=== PATIENT | male | born 1980 | race Caucasian/White ===

== ENCOUNTER 2018-07-04 20:55 | Emergency (ER) | payer OTHER, MEDICAID, SELFPAY ==
[2018-07-04 21:26] VITALS: BP 135/83; PULSE 98; RESP 14; TEMP 36.6; O2SAT 100
[2018-07-04 23:28] VITALS: PULSE 96; O2SAT 97
--- NOTE | 2018-07-05 02:03 | ED.OVERDOSE ---
HPI - Overdose General Chief Complaint: Toxicology Problem Stated Complaint: Intoxicated ETOH, thinks has alcohol Poisoning Time Seen by Provider: 07/05/18 02:03 Source: patient Mode of arrival: ambulatory Limitations: no limitations History of Present Illness HPI Narrative: The patient presents with abdominal discomfort and nausea. He did vomit once earlier today. He has been sober for 1 year in 2 days, until yesterday. Yesterday ( Earlier tonight) he drank 2 L of alcohol. he blamed the drinking on poor judgment. There is no inciting incident. He is here with abdominal pain, he speaks clearly. He has no associated chest pain or dyspnea. He denies history of pancreatitis or PUD. Related Data Home Medications Medication Instructions Recorded Confirmed No Known Home Medications 07/04/18 07/04/18 Allergies Allergy/AdvReac Type Severity Reaction Status Date / Time No Known Drug Allergies Allergy Verified 07/04/18 21:29 Review of Systems Review of Systems ROS Unobtainable: All systems reviewed & are unremarkable except as noted in HPI and below Constitutional Denies chills, Denies fever(s), Denies lethargy and Denies weakness Eyes Denies change in vision ENT Ears, Nose, Mouth, and Throat: Denies vertigo Cardiovascular Denies chest pain, Denies lightheadedness, Denies palpitations, Denies dyspnea and Denies orthopnea Respiratory Denies cough, Denies dyspnea and Denies wheezing Gastrointestinal Gastrointestinal: Denies abdominal pain, Denies change in bowel habits, Reports nausea and Denies vomiting Musculoskeletal Denies back pain, Denies muscle weakness, Denies numbness and Denies tingling Integumentary/Breasts Denies rash Neurologic Denies confusion, Denies vertigo, Denies numbness, Denies tingling and Denies weakness Psychiatric Denies confusion Endocrine Denies palpitations Allergic/Immunologic Denies wheezing PFSH Medical History Alcoholism (Acute) Surgical History No history of previous surgery (Acute) Social History Smoking Status: Former smoker alcohol intake: current Social History Smoking Status: Former smoker alcohol intake: current Exam Initial Vital Signs Initial Vital Signs: Vital Signs Temperature 98 F 07/04/18 21:26 Pulse Rate 98 H 07/04/18 21:26 Respiratory Rate 14 07/04/18 21:26 Blood Pressure 135/83 07/04/18 21:26 Pulse Oximetry 100 07/04/18 21:26 Const General: cooperative and well developed Nutritional Appearance: well nourished Orientation: alert, awake, oriented x3 and not confused [facility] Head: normocephalic and atraumatic Nose: external nose normal Face and sinus: sinuses nontender and face symmetric Mouth: oral mucosae normal and moist mucous membranes Throat: posterior oropharynx normal, tonsils normal and uvula midline Eyes General: appearance normal, both eyes and all related structures Eyelids: eyelids normal Conjunctivae: conjunctivae normal Sclera: sclerae normal ( no icterus) Pupils: PERRL EOM: EOM intact bilaterally Chest Chest: normal inspection of the chest Resp Effort & Inspection: normal respiratory effort, able to speak in complete sentences, no respiratory distress and no use of accessory muscles Auscultation: clear to auscultation bilaterally, no rales, no rhonchi and no wheezes Cardio Rate: regular rate Rhythm: regular rhythm Heart Sounds: no click, no gallops, no murmurs and no rubs Pulses: normal peripheral pulses GI Inspection: non-distended Palpation: soft, no hepatosplenomegaly, No guarding, No pulsatile mass and tender ( epigastric) Auscultation: normal bowel sounds Back/Spine/Pelvis Back: No CVA tenderness Skin General: no rashes or lesions noted Neuro General: alert, oriented x3, gait normal and no focal motor deficits Speech: speech normal Extrem General: full ROM, no pedal edema and no calf tenderness Psych Appearance: well kempt Mental Status: mental status grossly normal Attitude: cooperative Thought Content: normal and suicidality Judgment: judgment good Course Course Narrative: His pain has resolved as the medications listed were given. He has no pain, no nausea. He feels back to normal. Orders Ordered: ED Orders 07/05/18 02:35 Complete Blood Count AUTO DIFF Stat Comprehensive Metabolic Panel Stat Lipase Stat 07/05/18 04:24 Urine Drug Screen, Rapid Stat Discontinued Medications Ketorolac Tromethamine (Toradol) 30 mg IV NOW ONE Stop: 07/05/18 02:12 Last Admin: 07/05/18 02:38 Dose: 30 mg Ondansetron HCl (Zofran) 4 mg IV NOW ONE Stop: 07/05/18 02:12 Last Admin: 07/05/18 02:38 Dose: 4 mg Pantoprazole Sodium (Protonix) 40 mg IV NOW ONE Stop: 07/05/18 02:12 Last Admin: 07/05/18 03:04 Dose: 40 mg Vital Signs - 8 hr 07/04/18 21:26 07/04/18 23:28 07/05/18 03:10 Temperature 98 F Pulse Rate 98 H 96 H 80 Respiratory Rate 14 20 Blood Pressure 135/83 Blood Pressure [Left Arm] 128/89 Pulse Oximetry 100 97 97 07/05/18 04:26 Temperature Pulse Rate 93 H Respiratory Rate 18 Blood Pressure Blood Pressure [Left Arm] 111/63 Pulse Oximetry 95 MDM - Overdose Lab Data Result diagrams: 07/05/18 02:35 07/05/18 02:35 Lab Results 07/05/18 07/05/18 Range/Units 02:35 02:35 WBC 9.2 (4.5-11.0) X10^3/uL RBC 4.61 (4.5-5.9) X10^6/uL Hgb 13.9 (13.5-17.5) g/dL Hct 41.5 (41-53) % MCV 90.0 (80-100) fL MCH 30.1 (26-34) PG MCHC 33.4 (30-36) % RDW 14.2 (11.6-14.8) % Plt Count 295 (150-400) X10^3/uL Neut % (Auto) 55.8 (50-75) % Lymph % (Auto) 39.6 (25-40) % [place] % (Auto) 3.5 (3-14) % Eos % (Auto) 0.4 L (2-4) % Baso % (Auto) 0.7 (0-2) % Neut # (Auto) 5200 (9654-4777) /uL Lymph # (Auto) 3700 (2070-7766) /uL [place] # (Auto) 300 (0-900) /uL Eos # (Auto) 0 (0-450) /uL Baso # (Auto) 100 (0-100) /uL Sodium 144 (137-145) mmol/L Potassium 4.1 (3.4-5.1) mmol/L Chloride 102 (98-107) mmol/L Carbon Dioxide 29 (22-32) mmol/L BUN 13 (9-20) mg/dL Creatinine 0.90 (0.66-1.25) mg/dL Estimated GFR > 60.0 (>60) mL/min BUN/Creatinine Ratio 14.4 (6-22) Glucose 81 (70-100) mg/dL Calcium 8.6 (8.4-10.2) mg/dL Total Bilirubin 0.4 (0.2-1.3) mg/dL AST 44 (17-59) IU/L ALT 31 (21-72) IU/L Alkaline Phosphatase 32 L (38-126) U/L Total Protein 8.2 (6.3-8.2) g/dL Albumin 5.0 (3.5-5.0) g/dL Globulin 3.2 (1.7-4.1) g/dL Albumin/Globulin Ratio 1.6 (1.0-2.8) Lipase 69 (23-300) U/L Urine Dip Bedside Urine Glucose Negative Bedside Urine Bilirubin - Negative Bedside Urine Ketone - Negative Urine Specific [place] 1.020 Bedside Urine Occult Blood - Negative Bedside Urine pH 6.0 Bedside Urine Protein - Negative Bedside Urine Urobilinogen - Negative Bedside Urine Nitrite - Negative Bedside Urine Leukocytes - Negative Esterase MDM Narrative Medical decision making narrative: I think his discomfort was related to his excessive alcohol intake. He agrees. We discussed avoiding alcohol, he agrees again. He feels improved and ready for discharge. Discharge Plan Departure Patient Disposition: Home Clinical Impression: Alcoholic gastritis Qualifiers: Chronicity: acute Gastritis bleeding: without bleeding Qualified Code(s): K29.20 - Alcoholic gastritis without bleeding Instructions: DI for Alcoholic Gastritis Activity Restrictions/Additional Instructions: If you avoid the use of alcohol, I do not think he will have ongoing problems with her stomach. Zantac is available over the counter. If you have recurrence of this discomfort, take 2 pills 2 times daily. Follow up with your doctor or return here if symptoms increase. Prescriptions: No Action No Known Home Medications RF: 0
[2018-07-05] MEDS: ONDANSETRON 4 MG/2 ML INJ IV (02:38)
[2018-07-05] MEDS: KETOROLAC 60 MG/2 ML VIAL 30 MG IV (02:38)
[2018-07-05 02:54] LABS: Add Manual Diff / Slide Review NO; Basophils Absolute Auto 100 /uL (0-100); Basophils Percent Auto 0.7 % (0-2); Eosinophils Absolute Auto 0 /uL (0-450); Eosinophils Percent Auto 0.4 % (2-4); Hematocrit 41.5 % (41-53); Hemoglobin 13.9 g/dL (13.5-17.5); Lymphocytes Absolute Auto 3700 /uL (1100-4500); Lymphocytes Percent Auto 39.6 % (25-40); Mean Corpuscular HGB Conc 33.4 % (30-36); Mean Corpuscular Hemoglobin 30.1 PG (26-34); Monocytes Absolute Auto 300 /uL (0-900); Monocytes Percent Auto 3.5 % (3-14); Neutrophils Absolute Auto 5200 /uL (1500-7000); Neutrophils Percent Auto 55.8 % (50-75); Platelet Count 295 X10^3/uL (150-400); Red Blood Cell Count 4.61 X10^6/uL (4.5-5.9); Red Cell Distribution Width 14.2 % (11.6-14.8); White Blood Cell Count 9.2 X10^3/uL (4.5-11.0)
[2018-07-05 03:00] LABS: Alanine Aminotransferase 31 IU/L (21-72); Albumin Globulin Ratio 1.6 (1.0-2.8); Alkaline Phosphatase 32 U/L (38-126); Aspartate Aminotransferase 44 IU/L (17-59); BUN Creatinine Ratio 14.4 (6-22); Bilirubin Total 0.4 mg/dL (0.2-1.3); Blood Urea Nitrogen 13 mg/dL (9-20); Calcium 8.6 mg/dL (8.4-10.2); Carbon Dioxide 29 mmol/L (22-32); Chloride 102 mmol/L (98-107); Estimated Glomerular Filt Rate > 60.0 mL/min (>60); Globulin 3.2 g/dL (1.7-4.1); Glucose 81 mg/dL (70-100); HEMOLYSIS < 15 (0-50); Lipase 69 U/L (23-300); Potassium 4.1 mmol/L (3.4-5.1); Sodium 144 mmol/L (137-145); Total Protein 8.2 g/dL (6.3-8.2)
[2018-07-05] MEDS: PANTOPRAZOLE 40 MG VIAL IV (03:04)
[2018-07-05 03:10] VITALS: BP 128/89; PULSE 80; RESP 20; O2SAT 97
--- NOTE | 2018-07-05 04:20 | PC.NURSE ---
Pt reports his headache improved to 2/10 and nausea resolved. His abdomen feels well now. pt denies feeling restless or anxious at this time. Pt's partner at bedside.
[2018-07-05 04:26] VITALS: BP 111/63; PULSE 93; RESP 18; O2SAT 95
[2018-07-05 05:29] VITALS: BP 112/66; PULSE 97; RESP 14; TEMP 37.1; O2SAT 96
== END 2018-07-05 05:40 | disposition home or self-care (01) ==
PROVIDERS: Emergency Provider Emergency Medicine
DX: K29.20 Alcoholic gastritis without bleeding (principal)
CPT/HCPCS: 36591; 80053; 81003; 83690; 85025; 96374; 96375; 99283; 99284; C9113; J1885; J2405

== ENCOUNTER 2018-11-16 07:59 | Emergency (ER) | payer OTHER, SELFPAY ==
[2018-11-16 08:19] VITALS: BP 136/98; PULSE 108; RESP 22; TEMP 36.5; O2SAT 97; BMI 21.2
--- NOTE | 2018-11-16 09:22 | PC.NURSE ---
Addendum entered by Cira Thompson R.N. 11/16/18 09:37: Pt attempting to leave AMA. This RN redirected patient to the restroom to provide urine sample and stated that he had a bed available at [facility] for detox. Pt directionable and went to bathroom and provided urine sample. Pt came out of room multiple times asking where lab was and that he was going to walk his urine sample down himself. Pt redirected to his room. Pt came out again and asked for a vacutainer to draw his own blood. Pt told to go back to room. Pt then walked out of the unit, stated that he was leaving, that we weren't doing anything for him. Pt AOx4, ambulatory and signed his AMA form. Original Note: Pt attempting to leave AMA. This RN redirected patient to the restroom to provide urine sample and stated that he had a bed available at [facility] for detox. Pt directionable and went to bathroom and provided urine sample. Pt came out of room multiple times asking where lab was and that he was going to walk his urine sample down
--- NOTE | 2018-11-16 09:23 | PC.NURSE ---
Pt states he wants to leave. Ambulatory. Clear speech. Provider states safe to leave. Signed AMA. Walked w/ pt to open door, he then stepped forward and became threatening. I asked him to step back and he took a step forward. I then stated he was signed out of the ED, to walk out of hospital. He declined. I stepped back and told him I felt threatened and asked him to leave. He again stepped forward. I asked library serials assistant to call for assist, he then exited the building calmly and casually.
--- NOTE | 2018-11-16 09:26 | ED_ITS ---
HPI - Alcohol General Chief Complaint: Toxicology Problem Stated Complaint: acute alcohol detox Time Seen by Provider: 11/16/18 08:02 Source: patient Mode of arrival: ambulatory Limitations: no limitations History of Present Illness HPI narrative: Patient comes to the emergency department complaining needing help with his drinking. Patient states that he has a job that is very stressful and also has some stressors in his relationship with his significant other, and that everything has been too much recently. Patient has a longstanding history of alcoholism, and states he has been struggling with this since age 15. Patient reports having been to rehab for this a number of times over the years. He states that he tends to binge drink, and that his most recent binge has been for about a week and half. He states that recently, he received a job promotion, which did increase his income, but has also increased his responsibilities at work. 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 Patient states he has been drinking 1 to 2/5 of vodka per day. He states he would like help with his drinking, though he prefers outpatient so that he can continue his work duties. The patient is open to inpatient if it is only for a couple of days. He denies abdominal pain. He states he sometimes feels as though he looks ?jaundiced?. He denies any known history of liver issues. No nausea or vomiting. He does note that he feels as though his food does not digest very well, but he has had an appetite and was able to eat a large meal yesterday. The patient has been doing some purging in the form of induced vomiting after eating, because he states that he does not feel that his food is digesting completely or completely evacuating from his stomach. No chest pain or shortness of breath. No fevers. No blood in stool or vomit. The patient is otherwise healthy. He denies suicidal or homicidal ideation. No other complaints at this time. Related Data Home Medications Medication Instructions Recorded Confirmed No Known Home Medications 07/04/18 07/04/18 Allergies Allergy/AdvReac Type Severity Reaction Status Date / Time No Known Drug Allergies Allergy Verified 11/16/18 08:22 Review of Systems Constitutional Denies chills, Denies fever(s), Denies lethargy and Denies weakness Eyes Denies change in vision, Denies eye discharge, Denies irritation and Denies loss of vision ENT Ears, Nose, Mouth, and Throat: Denies change in voice, Denies neck pain and Denies sore throat Cardiovascular Denies chest pain, Denies irregular heart rhythm, Denies lightheadedness, Denies palpitations, Denies dyspnea, Denies dyspnea on exertion and Denies orthopnea Respiratory Denies cough, Denies dyspnea, Denies dyspnea on exertion and Denies wheezing Gastrointestinal Gastrointestinal: Denies abdominal pain, Denies change in bowel habits, Denies diarrhea, Denies nausea and Denies vomiting Genitourinary Denies hematuria, Denies flank pain, Denies urinary incontinence and Denies urinary urgency Musculoskeletal Denies neck pain Integumentary/Breasts Denies pruritus, Denies erythema, Denies rash and Denies wounds Neurologic Denies confusion, Denies loss of vision and Denies weakness Psychiatric Denies anxiety, Denies confusion, Denies depression, Denies homicidal ideation and Denies suicidal ideation Endocrine Denies palpitations Hematologic/Lymphatic Denies easy bruising Allergic/Immunologic Denies wheezing [facility] Medical History Alcoholism (Acute) Surgical History No history of previous surgery (Acute) Social History (Updated 07/05/18 @ 02:21 by Humble Coon MD) Smoking Status: Former smoker alcohol intake: current Social History Smoking Status: Former smoker alcohol intake: current Exam Initial Vital Signs Initial Vital Signs: Vital Signs Temperature 97.7 F 11/16/18 08:19 Pulse Rate 108 H 11/16/18 08:19 Respiratory Rate 22 11/16/18 08:19 Blood Pressure 136/98 H 11/16/18 08:19 Pulse Oximetry 97 11/16/18 08:19 Const General: cooperative and well developed Nutritional Appearance: well nourished Orientation: alert, awake, oriented x3 and not confused Other: Patient is tearful, and smells of alcohol, but otherwise well-appearing. HENMT Head: normocephalic and atraumatic Ears: external ears normal and TM's normal bilaterally Nose: external nose normal and No nasal discharge Face and sinus: sinuses nontender, face symmetric, no sinus tenderness and No dry mucous membranes Mouth: oral mucosae normal and moist mucous membranes Teeth and gingiva: dentition normal Throat: tonsils normal and uvula midline Eyes General: appearance normal, both eyes and all related structures Eyelids: eyelids normal Conjunctivae: conjunctivae normal Sclera: sclerae normal Pupils: PERRL EOM: EOM intact bilaterally Neck Neck: normal visual inspection, trachea midline, No lymphadenopathy, No midline deformity and No JVD Lymphatic: No lymphedema Chest Chest: normal inspection of the chest Resp Effort & Inspection: normal respiratory effort, able to speak in complete sentences, no respiratory distress and no use of accessory muscles Auscultation: clear to auscultation bilaterally, no rales, no rhonchi and no wheezes Cardio Rate: regular rate Rhythm: regular rhythm Heart Sounds: no click, no gallops, no murmurs and no rubs Pulses: normal peripheral pulses GI Inspection: non-distended Palpation: soft, no hepatosplenomegaly, No guarding, No pulsatile mass and No tender Auscultation: normal bowel sounds Back/Spine/Pelvis Back: No CVA tenderness Cervical Spine: cervical ROM normal and No pain with cervical ROM Thoracic/Lumbar Spine: thoracic and lumbar spine normal to inspection Skin General: no rashes or lesions noted, No jaundice and No petechiae Neuro General: alert, oriented x3, gait normal and no focal motor deficits Speech: speech normal Extrem General: full ROM, no clubbing, cyanosis or edema, no pedal edema and no calf tenderness Psych Appearance: well kempt Mental Status: mental status grossly normal Attitude: cooperative Thought Content: normal and suicidality Judgment: judgment good Course Course Narrative: I discussed with the patient that we would call the crisis Center and see if they had any beds available. I explained to him that we would also start an IV, given a banana bag, and check his labs for detox clearance. We did call the crisis Center, who stated they had available beds, but would need to see the patient's labs 1st. Shortly after this, the patient became agitated and stated he was tired of waiting in the emergency department and insisted on leaving. The patient was alert and oriented x3 and ambulatory on a narrow based gait without unsteadiness. He stated he would walk home. The patient had not been in the emergency department long enough to be evaluated by a mental health professional, and as such, think consideration of his alertness and orientation, he was deemed competent to sign out against medical advice, which he did. However, about 10 minutes later, the patient did return to the emergency department stating that he had changed his mind and would like to continue with the plan to go to detox. The patient stayed in the emergency department only about 10 minutes before again deciding to leave. As with the 1st time, patient was advised that he is not fit to drive, and he stated he was walking home. He was given a list of resources for outpatient treatment. Orders Ordered: ED Orders 11/16/18 09:15 Urine Drug Screen, Rapid Stat 11/16/18 09:51 Complete Blood Count AUTO DIFF Stat Comprehensive Metabolic Panel Stat Ethanol (ETOH) Stat Discontinued Medications Magnesium Sulfate 2 gm/ Folic Acid 1 mg/ Thiamine HCl 100 mg / Multivitamins 10 ml/ Sodium Chloride 1,015.2 mls @ 1,000 mls/hr IV NOW ONE Stop: 11/16/18 09:58 Vital Signs - 8 hr 11/16/18 08:19 Temperature 97.7 F Pulse Rate 108 H Respiratory Rate 22 Blood Pressure 136/98 H Pulse Oximetry 97 MDM - Alcohol Medical Records Attestation: I reviewed the patient's medical records. Lab Data Attestation: I reviewed the patient's lab results. Result diagrams: 11/16/18 09:51 11/16/18 09:51 Labs: Lab Results 11/16/18 11/16/18 11/16/18 Range/Units 09:15 09:51 09:51 WBC 5.6 (4.5-11.0) X10^3/uL RBC 5.15 (4.5-5.9) X10^6/uL Hgb 15.8 (13.5-17.5) g/dL Hct 46.3 (41-53) % MCV 89.9 (80-100) fL MCH 30.7 (26-34) PG MCHC 34.2 (30-36) % RDW 13.8 (11.6-14.8) % Plt Count 297 (150-400) X10^3/uL Neut % (Auto) 51.4 (50-75) % Lymph % (Auto) 41.6 H (25-40) % [place] % (Auto) 6.1 (3-14) % Eos % (Auto) 0.3 L (2-4) % Baso % (Auto) 0.6 (0-2) % Neut # (Auto) 2900 (8275-3613) /uL Lymph # (Auto) 2300 (9222-5886) /uL [place] # (Auto) 300 (0-900) /uL Eos # (Auto) 0 (0-450) /uL Baso # (Auto) 0 (0-100) /uL Sodium 148 H (137-145) mmol/L Potassium 3.5 (3.4-5.1) mmol/L Chloride 98 (98-107) mmol/L Carbon Dioxide 35 H (22-32) mmol/L BUN 10 (9-20) mg/dL Creatinine 0.80 (0.66-1.25) mg/dL Estimated GFR > 60.0 (>60) mL/min BUN/Creatinine Ratio 12.5 (6-22) Glucose 111 H (70-100) mg/dL Calcium 9.1 (8.4-10.2) mg/dL Total Bilirubin 0.6 (0.2-1.3) mg/dL AST 51 (17-59) IU/L ALT 25 (21-72) IU/L Alkaline Phosphatase 39 (38-126) U/L Total Protein 9.0 H (6.3-8.2) g/dL Albumin 5.3 H (3.5-5.0) g/dL Globulin 3.7 (1.7-4.1) g/dL Albumin/Globulin Ratio 1.4 (1.0-2.8) Urine Opiates Screen Negative (Negative) Ur Oxycodone Screen Negative (Negative) Urine Methadone Screen Negative (Negative) Ur Barbiturates Screen Negative (Negative) U Tricyclic Antidepress Negative (Negative) Ur Phencyclidine Scrn Negative (Negative) Ur Amphetamines Screen Negative (Negative) U Methamphetamines Scrn Negative (Negative) Ur MDMA Scrn (Ecstasy) Negative (Negative) U Benzodiazepines Scrn Negative (Negative) Urine Cocaine Screen Negative (Negative) U Marijuana (THC) Screen Negative (Negative) Ethyl Alcohol 384 mg/dL Discharge Plan Departure Patient Disposition: Left Against Medical Advice Clinical Impression: Alcohol intoxication Discharge Date/Time: 11/16/18 10:00 Prescriptions: No Action No Known Home Medications RF: 0 Stand Alone Forms: Against Medical Advice
--- NOTE | 2018-11-16 09:42 | PC.NURSE ---
Pt sat in lobby of ED. Returned and asked to speak w/ me. Apologetic. States he needs help. No threatening demeanor. Returned to ED room 7.
[2018-11-16 09:51] LABS: Urine Amphetamines Negative (Negative); Urine Barbiturates Negative (Negative); Urine Benzodiazepines Negative (Negative); Urine Cocaine Negative (Negative); Urine MDMA Negative (Negative); Urine Methadone Negative (Negative); Urine Methamphetamines Negative (Negative); Urine Morphine/Opi cutoff 2000 Negative (Negative); Urine Phencyclidine Negative (Negative); Urine Tetrahydrocannabinol Negative (Negative); Urine Tricyclic Antidepressant Negative (Negative)
[2018-11-16 09:52] LABS: Urine Oxycodone Negative (Negative)
[2018-11-16 09:59] LABS: Add Manual Diff / Slide Review NO; Basophils Absolute Auto 0 /uL (0-100); Basophils Percent Auto 0.6 % (0-2); Eosinophils Absolute Auto 0 /uL (0-450); Eosinophils Percent Auto 0.3 % (2-4); Hematocrit 46.3 % (41-53); Hemoglobin 15.8 g/dL (13.5-17.5); Lymphocytes Absolute Auto 2300 /uL (1100-4500); Lymphocytes Percent Auto 41.6 % (25-40); Mean Corpuscular HGB Conc 34.2 % (30-36); Mean Corpuscular Hemoglobin 30.7 PG (26-34); Mean Corpuscular Volume 89.9 fL (80-100); Monocytes Absolute Auto 300 /uL (0-900); Monocytes Percent Auto 6.1 % (3-14); Neutrophils Absolute Auto 2900 /uL (1500-7000); Neutrophils Percent Auto 51.4 % (50-75); Platelet Count 297 X10^3/uL (150-400); Red Blood Cell Count 5.15 X10^6/uL (4.5-5.9); Red Cell Distribution Width 13.8 % (11.6-14.8); White Blood Cell Count 5.6 X10^3/uL (4.5-11.0)
--- NOTE | 2018-11-16 10:00 | PC.NURSE ---
Pt took out own IV and left department.
[2018-11-16 10:11] LABS: Alanine Aminotransferase 25 IU/L (21-72); Albumin 5.3 g/dL (3.5-5.0); Albumin Globulin Ratio 1.4 (1.0-2.8); Alkaline Phosphatase 39 U/L (38-126); Aspartate Aminotransferase 51 IU/L (17-59); BUN Creatinine Ratio 12.5 (6-22); Bilirubin Total 0.6 mg/dL (0.2-1.3); Blood Urea Nitrogen 10 mg/dL (9-20); Calcium 9.1 mg/dL (8.4-10.2); Carbon Dioxide 35 mmol/L (22-32); Chloride 98 mmol/L (98-107); Estimated Glomerular Filt Rate > 60.0 mL/min (>60); Globulin 3.7 g/dL (1.7-4.1); Glucose 111 mg/dL (70-100); HEMOLYSIS < 15 (0-50); Potassium 3.5 mmol/L (3.4-5.1); Sodium 148 mmol/L (137-145)
[2018-11-16 10:18] LABS: Ethanol (ETOH) 384 mg/dL
== END 2018-11-16 10:00 | disposition left against medical advice (07) ==
PROVIDERS: Emergency Provider Emergency Medicine
DX: F10.929 Alcohol use, unspecified with intoxication, unspecified (principal); Z53.20 Procedure and treatment not carried out because of patient's decision for unspecified reasons
CPT/HCPCS: 36591; 80053; 80305; 80320; 85025; 99281; 99283

== ENCOUNTER 2018-11-16 11:11 | Emergency (ER) | payer OTHER, SELFPAY ==
[2018-11-16 11:16] VITALS: BP 136/97; PULSE 91; RESP 17; TEMP 36.9; O2SAT 96
[2018-11-16 11:30] VITALS: BP 123/86; PULSE 90; O2SAT 98
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
--- NOTE | 2018-11-16 11:41 | PC.NURSE ---
Late entry: Pt's father called ED @ 10 min after he had left. Voiced concern that his son was allowed to leave. Unable to discus record w/o pt's permission. Verbalized to father that his son was welcome to be seen at any point in time. If he had high concern level to call [facility] SCHRADER for assistance.
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
[2018-11-16 12:00] VITALS: BP 114/79; PULSE 80; O2SAT 97
[2018-11-16 12:30] VITALS: BP 107/77; PULSE 70; O2SAT 95
[2018-11-16 13:00] VITALS: BP 112/79; PULSE 88; O2SAT 96
[2018-11-16 13:32] VITALS: BP 112/76; PULSE 80; RESP 17; O2SAT 99
== END 2018-11-16 13:56 | disposition home or self-care (01) ==
PROVIDERS: Emergency Provider Emergency Medicine
DX: S00.01XA Abrasion of scalp, initial encounter (principal); F10.929 Alcohol use, unspecified with intoxication, unspecified; V49.9XXA Car occupant (driver) (passenger) injured in unspecified traffic accident, initial encounter
CPT/HCPCS: 70450; 72125; 99283; 99284

== ENCOUNTER 2019-07-27 15:32 | Emergency (ER) | payer OTHER, SELFPAY ==
[2019-07-27 15:44] VITALS: BP 162/113; PULSE 99; RESP 12; TEMP 37; O2SAT 99; BMI 22.8
--- NOTE | 2019-07-27 16:06 | ED_ITS ---
HPI - Alcohol <Chris CollazoBRYON espinoza - Last Filed: 07/28/19 00:19> General Chief Complaint: Toxicology Problem Stated Complaint: DEHYDRATION THREAT TO SELF AND OTHERS NEEDS HELP Time Seen by Provider: 07/27/19 15:43 Source: patient and family Mode of arrival: Wheelchair Limitations: altered mental status and physical limitation History of Present Illness HPI narrative: This is a 38-year-old male, current vapor, who presents to ED with father with chief complain of concerns for dehydration from large amount of alcohol intake. Patient reports he has been nauseated and had about 5 episodes of emesis last 24 hours. Patient is a for the 1st time had specks of blood when he vomited this morning. Patient denies abdominal pain. According to patient and father he has been drinking last 20-25 years and usually takes about 16 beers a day. Patient has history of DT 2004. Patient and father states he has been reducing his alcohol intake over last 2 days for half of his normal amount and last alcohol intake was 06/20/2029 this afternoon. Patient had taken Ativan before coming into ED at 2:00 p.m. and taken [place] version of antiemetic medication this morning. Patient denies hallucinations, but reports nausea and headache with mild anxiety. Related Data Home Medications Medication Instructions Recorded Confirmed No Known Home Medications 07/27/19 07/27/19 Allergies Allergy/AdvReac Type Severity Reaction Status Date / Time No Known Drug Allergies Allergy Verified 07/27/19 15:55 Review of Systems <Chris CollazoBRYON espinoza - Last Filed: 07/28/19 00:19> Review of Systems Narrative: General: Denies fever, chills, fatigue, malaise, sweats. HEENT: Denies sinus pain, ear pain, sore throat, difficulty swallowing, dizziness. Respiratory: Denies dyspnea, cough, wheezing, hemoptysis, sputum. Cardiovascular: Denies chest pain, palpitations, orthopnea, edema. Gastrointestinal: Denies (+) nausea, vomiting, abdominal pain, diarrhea, constipation, melena, specs of blood in emesis this morning. : Denies dysuria, frequency, incontinence, hematuria, urinary retention. Musculoskeletal: Denies weakness, joint pain or bony pain. Skin: Denies rash, skin lesions, or other. Neurologic: Denies weakness, headache, numbness, change in speech, confusion, seizures, incoordination. Psychiatric: Denies suicidal or homicidal ideation. Alcohol smell on his breath. Tearful easily. 12-point review of systems is negative except for those stated above. Patient History <BRYON Melendez - Last Filed: 07/28/19 00:19> Medical History Alcoholism (Acute) Palpitation (Acute) Surgical History No history of previous surgery (Acute) Social History Smoking Status: Former smoker alcohol intake: current Smoking Status: Former smoker tobacco type: vaping alcohol intake frequency: 3 or more drinks per day Substance Use Type: does not use Exam <BRYON Melendez - Last Filed: 07/28/19 00:19> Narrative Exam Narrative: GEN: Alert, oriented x 3, appears to be intoxicated from alcohol. Slightly slurred speech with alcohol breath. Head: Normal cephalic, atraumatic. No scalp or temporal tenderness, palpable mass or rash. EYES: Pupils are equal, round, and reactive to light and accommodation, 5mm bilatearally. Extraocular muscles are intact bilaterally. There is no subconjunctival hemorrhage, exudate and sclera non-icteric. ENT: Bilateral auditory canals and tympanic membranes clear. Hearing grossly intact. Nose without bleeding, purulent discharge or deviation. Facial sinuses nontender to palpate. Mucous membrane moist, no mucosal lesion. Throat without erythema, tonsillar hypertrophy or exudate. Uvula in midline, airway patent. Neck: Trachea in midline. No JVD, non-tender without lymphadenopathy. No masses or thyroid megaly. Supple, non-tender and no meningeal signs. CARDIAC: Normal regular tachy rate and rhythm without murmurs, gallops, or rubs. No chest wall tenderness. No peripheral edema, cyanosis or pallor. Capillary refill is less than 2 seconds. RESPIRATORY: Lungs are clear to auscultate bilaterally. No cough, wheezes, rales, or rhonchi. No stridor, respiratory distress, increase work of breathing, or accessary muscle used. ABD: Abdomen soft, nontender and non-distended. No guarding or rebound tenderness to palpate. Bowel sounds are normal in all 4 quadrants. There is no palpable masses or organomegaly. EXT: Full painless ROM of all extremities with no loss of sensation, strength, effusion or edema. SKIN: Warm, dry, normal color for patient. No erythema, lesions or rash over visible areas. BACK: Nontender without deformity or crepitance. No flank tenderness. NEUROLOGICAL: Alert and oriented to place, time and person. Sensation and motor function intact bilaterally. No facial droops, dysphasia. Initial Vital Signs Initial Vital Signs: Vital Signs Temperature 98.6 F 07/27/19 15:44 Pulse Rate 99 H 07/27/19 15:44 Respiratory Rate 12 07/27/19 15:44 Blood Pressure 162/113 H 07/27/19 15:44 Pulse Oximetry 99 07/27/19 15:44 Psych Appearance: grossly normal Speech and Movement: slowed movement, slurred speech and other Mood: dysthymic mood Affect: sad Attitude: cooperative Thought Process: circumstantial Thought Content: no hallucinations, no homicidality and suicidality Judgment: limited <Sherine Blanchard MD - Last Filed: 07/28/19 08:22> Initial Vital Signs Initial Vital Signs: Vital Signs Temperature 98.6 F 07/27/19 15:44 Pulse Rate 99 H 07/27/19 15:44 Respiratory Rate 12 07/27/19 15:44 Blood Pressure 162/113 H 07/27/19 15:44 Pulse Oximetry 99 07/27/19 15:44 Scores <BRYON Melendez - Last Filed: 07/28/19 00:19> ABCD2 Citation: 1600-CIWA socre 7 (Intermittent nausea 4/Mild anxious 1/Mild MALIN 2) Course <BRYON Melendez - Last Filed: 07/28/19 00:19> Orders Ordered: Discontinued Medications Acetaminophen (Tylenol) 650 mg PO NOW ONE Stop: 07/27/19 17:02 Last Admin: 07/27/19 17:27 Dose: 650 mg Documented by: CVANCE Magnesium Sulfate 2 gm/ Folic Acid 1 mg/ Thiamine HCl 100 mg / Multivitamins 10 ml/ Sodium Chloride 1,015.2 mls @ 500 mls/hr IV NOW ONE Stop: 07/27/19 18:05 Last Admin: 07/27/19 16:40 Dose: 500 mls/hr Documented by: SHAJI Ondansetron HCl (Zofran) 4 mg IV NOW ONE Stop: 07/27/19 17:02 Last Admin: 07/27/19 17:27 Dose: 4 mg Documented by: SHAJI Reevaluation(s) Reevaluation #1: The patient requesting Ativan, I need an Ativan and the patient was informed lab test is pending currently and his CIWA score does not indicate he is going through withdrawal at this time. Explaining to patient that his last drink was at 2:30 a.m. before coming into ED and he had Ativan medication as well. Medication will be administered as needed. Patient offered Zofran for nausea and Tylenol for headache. Time: 17:10 Vital Signs Vital signs: Vital Signs - 8 hr 07/27/19 16:45 07/27/19 17:46 Pulse Rate 100 H 92 H Respiratory Rate 12 14 Blood Pressure [Left Arm] 141/95 H Pulse Oximetry 97 96 <Sherine Blanchard MD - Last Filed: 07/28/19 08:22> Orders Ordered: Discontinued Medications Acetaminophen (Tylenol) 650 mg PO NOW ONE Stop: 07/27/19 17:02 Last Admin: 07/27/19 17:27 Dose: 650 mg Documented by: SHAJI Magnesium Sulfate 2 gm/ Folic Acid 1 mg/ Thiamine HCl 100 mg / Multivitamins 10 ml/ Sodium Chloride 1,015.2 mls @ 500 mls/hr IV NOW ONE Stop: 07/27/19 18:05 Last Admin: 07/27/19 16:40 Dose: 500 mls/hr Documented by: SHAJI Ondansetron HCl (Zofran) 4 mg IV NOW ONE Stop: 07/27/19 17:02 Last Admin: 07/27/19 17:27 Dose: 4 mg Documented by: SHAJI Vital Signs Vital signs: Vital Signs - 8 hr 07/27/19 16:45 07/27/19 17:46 Pulse Rate 100 H 92 H Respiratory Rate 12 14 Blood Pressure [Left Arm] 141/95 H Pulse Oximetry 97 96 MDM - Alcohol <BRYON Melendez - Last Filed: 07/28/19 00:19> Differential Diagnosis Differential diagnosis: Likely alcohol intoxication and alcohol withdrawal syndrome Medical Records Attestation: I reviewed the patient's medical records. Lab Data Attestation: I reviewed the patient's lab results. Result diagrams: 07/27/19 16:25 07/27/19 16:25 Labs: Lab Results 07/27/19 07/27/19 07/27/19 Range/Units 16:25 16:25 16:25 WBC 7.2 (4.5-11.0) X10^3/uL RBC 5.02 (4.5-5.9) X10^6/uL Hgb 15.2 (13.5-17.5) g/dL Hct 44.6 (41-53) % MCV 88.9 (80-100) fL MCH 30.4 (26-34) PG MCHC 34.2 (30-36) % RDW 13.9 (11.6-14.8) % Plt Count 263 (150-400) X10^3/uL Neut % (Auto) 40.2 L (50-75) % Lymph % (Auto) 55.2 H (25-40) % [place] % (Auto) 3.9 (3-14) % Eos % (Auto) 0.1 L (2-4) % Baso % (Auto) 0.6 (0-2) % Neut # (Auto) 2900 (7158-0058) /uL Lymph # (Auto) 4000 (4264-5514) /uL [place] # (Auto) 300 (0-900) /uL Eos # (Auto) 0 (0-450) /uL Baso # (Auto) 0 (0-100) /uL PT 10.4 (10.1-12.7) SECONDS INR 0.9 (0.9-1.3) Sodium (137-145) mmol/L Potassium (3.4-5.1) mmol/L Chloride (98-107) mmol/L Carbon Dioxide (22-32) mmol/L BUN (9-20) mg/dL Creatinine (0.66-1.25) mg/dL Estimated GFR (>60) mL/min BUN/Creatinine Ratio (6-22) Glucose (70-100) mg/dL Calcium (8.4-10.2) mg/dL Phosphorus 4.1 (2.5-4.5) mg/dL Magnesium (1.6-2.3) mg/dL Total Bilirubin (0.2-1.3) mg/dL Conjugated Bilirubin (0.0-0.3) md/dL Unconjugated Bilirubin (0.0-1.1) mg/dL AST (17-59) IU/L ALT (<50) IU/L Alkaline Phosphatase (38-126) U/L Total Protein (6.3-8.2) g/dL Albumin (3.5-5.0) g/dL Globulin (1.7-4.1) g/dL Albumin/Globulin Ratio (1.0-2.8) Lipase (23-300) U/L U Opiates 300ng/mL cut (Negative) Ur Oxycodone Screen (Negative) Urine Methadone Screen (Negative) Ur Barbiturates Screen (Negative) U Tricyclic Antidepress (Negative) Ur Phencyclidine Scrn (Negative) Ur Amphetamines Screen (Negative) U Methamphetamines Scrn (Negative) Ur MDMA Scrn (Ecstasy) (Negative) U Benzodiazepines Scrn (Negative) Urine Cocaine Screen (Negative) U Marijuana (THC) Screen (Negative) Ethyl Alcohol ( - 10) mg/dL 07/27/19 07/27/19 Range/Units 16:25 16:45 WBC (4.5-11.0) X10^3/uL RBC (4.5-5.9) X10^6/uL Hgb (13.5-17.5) g/dL Hct (41-53) % MCV (80-100) fL MCH (26-34) PG MCHC (30-36) % RDW (11.6-14.8) % Plt Count (150-400) X10^3/uL Neut % (Auto) (50-75) % Lymph % (Auto) (25-40) % [place] % (Auto) (3-14) % Eos % (Auto) (2-4) % Baso % (Auto) (0-2) % Neut # (Auto) (8101-0455) /uL Lymph # (Auto) (4201-6173) /uL [place] # (Auto) (0-900) /uL Eos # (Auto) (0-450) /uL Baso # (Auto) (0-100) /uL PT (10.1-12.7) SECONDS INR (0.9-1.3) Sodium 145 (137-145) mmol/L Potassium 4.3 (3.4-5.1) mmol/L Chloride 101 (98-107) mmol/L Carbon Dioxide 29 (22-32) mmol/L BUN 8 L (9-20) mg/dL Creatinine 0.67 (0.66-1.25) mg/dL Estimated GFR > 60.0 (>60) mL/min BUN/Creatinine Ratio 11.9 (6-22) Glucose 96 (70-100) mg/dL Calcium 9.3 (8.4-10.2) mg/dL Phosphorus (2.5-4.5) mg/dL Magnesium 2.1 (1.6-2.3) mg/dL Total Bilirubin 0.6 (0.2-1.3) mg/dL Conjugated Bilirubin 0.0 (0.0-0.3) md/dL Unconjugated Bilirubin 0.4 (0.0-1.1) mg/dL AST 82 H (17-59) IU/L ALT 46 (<50) IU/L Alkaline Phosphatase 45 (38-126) U/L Total Protein 9.1 H (6.3-8.2) g/dL Albumin 5.4 H (3.5-5.0) g/dL Globulin 3.7 (1.7-4.1) g/dL Albumin/Globulin Ratio 1.5 (1.0-2.8) Lipase 202 (23-300) U/L U Opiates 300ng/mL cut Negative (Negative) Ur Oxycodone Screen Negative (Negative) Urine Methadone Screen Negative (Negative) Ur Barbiturates Screen Negative (Negative) U Tricyclic Antidepress Negative (Negative) Ur Phencyclidine Scrn Negative (Negative) Ur Amphetamines Screen Negative (Negative) U Methamphetamines Scrn Negative (Negative) Ur MDMA Scrn (Ecstasy) Negative (Negative) U Benzodiazepines Scrn Negative (Negative) Urine Cocaine Screen Negative (Negative) U Marijuana (THC) Screen Negative (Negative) Ethyl Alcohol 378 H ( - 10) mg/dL Urine Dip Bedside Urine Glucose Negative Bedside Urine Bilirubin - Negative Bedside Urine Ketone - Negative Urine Specific [place] 1.010 Bedside Urine Occult Blood - Negative Bedside Urine pH 6.5 Bedside Urine Protein - Negative Bedside Urine Urobilinogen - Negative Bedside Urine Nitrite - Negative ECG Data Attestation: I personally reviewed and interpreted this ECG as follows: Prior ECG tracings: not available for review Interpretation: Normal sinus rhythm rate at 98. WI int 134, QRS dur 94, QT/QTc 346/[address] [place] elevation or depression MDM Narrative Medical decision making narrative: This is a 38-year-old male who presents to ED with his father with concerns for dehydration and alcohol withdrawal symptoms. Patient denies suicidal or homicidal ideation. It was unclear whether patient wanted to go to rehab or patient is requesting for IV rehydration treatment. Patient already had taken Ativan before coming into ED and had last alcohol drink a couple of hours before coming into ED. I spoke with patient and to start IV with blood draw and that he will receive IV hydration with a banana bag which he agrees to. Patient initially demanded for Ativan to calm his nerves down. Patient's lab tests were unremarkable. It does not indicate patient is dehydrated. AST was mildly elevated has 82 with unremarkable lipase as 202. Blood alcohol level was 378. UDS was negative. EKG was sinus rhythm without ST elevation or depression. CIWA score was 7 during initial encounter. Since patient's alcohol level was elevated with last alcohol intake a couple of hours ago, the patient and father informed that Ativan is not necessary at this time. Patient was re-evaluated twice and patient did not exhibit tremors, agitation, hallucination each time. Patient states he is feeling better 1 L of banana bag has infused. His speech became clear and appears to be not intoxicated at this time. I was contacted by nursing staff the patient would like to leave the ER. Patient once again ask whether patient is willing to try to go into detox facility and patient declined the offer and insisted on leaving. Patient was able to ambulate in stable gait, he conversed with this staff in clear speech. He was alert and oriented with GCS of 15 and and is requesting to sign out Against Medical Advice form. Patient exhibited capacity make competent decision at this time. While I was speaking to patient's father outside ER, patient attempted to leave ED with IV in placed through back ambulance entrance. Patient was stopped and escorted back to ED and again attempted to persuade patient to consider detox facility option. Patient again declined this and appr eciated the help and states he has alternative option. Patient signed Against Medical Advice form and was released to his father. Advised patient to return to ED any time and he verbalized understanding. <Sherine Blanchard MD - Last Filed: 07/28/19 08:22> Lab Data Labs: Lab Results 07/27/19 07/27/19 07/27/19 Range/Units 16:25 16:25 16:25 WBC 7.2 (4.5-11.0) X10^3/uL RBC 5.02 (4.5-5.9) X10^6/uL Hgb 15.2 (13.5-17.5) g/dL Hct 44.6 (41-53) % MCV 88.9 (80-100) fL MCH 30.4 (26-34) PG MCHC 34.2 (30-36) % RDW 13.9 (11.6-14.8) % Plt Count 263 (150-400) X10^3/uL Neut % (Auto) 40.2 L (50-75) % Lymph % (Auto) 55.2 H (25-40) % [place] % (Auto) 3.9 (3-14) % Eos % (Auto) 0.1 L (2-4) % Baso % (Auto) 0.6 (0-2) % Neut # (Auto) 2900 (4218-0594) /uL Lymph # (Auto) 4000 (8317-7534) /uL [place] # (Auto) 300 (0-900) /uL Eos # (Auto) 0 (0-450) /uL Baso # (Auto) 0 (0-100) /uL PT 10.4 (10.1-12.7) SECONDS INR 0.9 (0.9-1.3) Sodium (137-145) mmol/L Potassium (3.4-5.1) mmol/L Chloride (98-107) mmol/L Carbon Dioxide (22-32) mmol/L BUN (9-20) mg/dL Creatinine (0.66-1.25) mg/dL Estimated GFR (>60) mL/min BUN/Creatinine Ratio (6-22) Glucose (70-100) mg/dL Calcium (8.4-10.2) mg/dL Phosphorus 4.1 (2.5-4.5) mg/dL Magnesium (1.6-2.3) mg/dL Total Bilirubin (0.2-1.3) mg/dL Conjugated Bilirubin (0.0-0.3) md/dL Unconjugated Bilirubin (0.0-1.1) mg/dL AST (17-59) IU/L ALT (<50) IU/L Alkaline Phosphatase (38-126) U/L Total Protein (6.3-8.2) g/dL Albumin (3.5-5.0) g/dL Globulin (1.7-4.1) g/dL Albumin/Globulin Ratio (1.0-2.8) Lipase (23-300) U/L U Opiates 300ng/mL cut (Negative) Ur Oxycodone Screen (Negative) Urine Methadone Screen (Negative) Ur Barbiturates Screen (Negative) U Tricyclic Antidepress (Negative) Ur Phencyclidine Scrn (Negative) Ur Amphetamines Screen (Negative) U Methamphetamines Scrn (Negative) Ur MDMA Scrn (Ecstasy) (Negative) U Benzodiazepines Scrn (Negative) Urine Cocaine Screen (Negative) U Marijuana (THC) Screen (Negative) Ethyl Alcohol ( - 10) mg/dL 07/27/19 07/27/19 Range/Units 16:25 16:45 WBC (4.5-11.0) X10^3/uL RBC (4.5-5.9) X10^6/uL Hgb (13.5-17.5) g/dL Hct (41-53) % MCV (80-100) fL MCH (26-34) PG MCHC (30-36) % RDW (11.6-14.8) % Plt Count (150-400) X10^3/uL Neut % (Auto) (50-75) % Lymph % (Auto) (25-40) % [place] % (Auto) (3-14) % Eos % (Auto) (2-4) % Baso % (Auto) (0-2) % Neut # (Auto) (9219-4984) /uL Lymph # (Auto) (2483-9091) /uL [place] # (Auto) (0-900) /uL Eos # (Auto) (0-450) /uL Baso # (Auto) (0-100) /uL PT (10.1-12.7) SECONDS INR (0.9-1.3) Sodium 145 (137-145) mmol/L Potassium 4.3 (3.4-5.1) mmol/L Chloride 101 (98-107) mmol/L Carbon Dioxide 29 (22-32) mmol/L BUN 8 L (9-20) mg/dL Creatinine 0.67 (0.66-1.25) mg/dL Estimated GFR > 60.0 (>60) mL/min BUN/Creatinine Ratio 11.9 (6-22) Glucose 96 (70-100) mg/dL Calcium 9.3 (8.4-10.2) mg/dL Phosphorus (2.5-4.5) mg/dL Magnesium 2.1 (1.6-2.3) mg/dL Total Bilirubin 0.6 (0.2-1.3) mg/dL Conjugated Bilirubin 0.0 (0.0-0.3) md/dL Unconjugated Bilirubin 0.4 (0.0-1.1) mg/dL AST 82 H (17-59) IU/L ALT 46 (<50) IU/L Alkaline Phosphatase 45 (38-126) U/L Total Protein 9.1 H (6.3-8.2) g/dL Albumin 5.4 H (3.5-5.0) g/dL Globulin 3.7 (1.7-4.1) g/dL Albumin/Globulin Ratio 1.5 (1.0-2.8) Lipase 202 (23-300) U/L U Opiates 300ng/mL cut Negative (Negative) Ur Oxycodone Screen Negative (Negative) Urine Methadone Screen Negative (Negative) Ur Barbiturates Screen Negative (Negative) U Tricyclic Antidepress Negative (Negative) Ur Phencyclidine Scrn Negative (Negative) Ur Amphetamines Screen Negative (Negative) U Methamphetamines Scrn Negative (Negative) Ur MDMA Scrn (Ecstasy) Negative (Negative) U Benzodiazepines Scrn Negative (Negative) Urine Cocaine Screen Negative (Negative) U Marijuana (THC) Screen Negative (Negative) Ethyl Alcohol 378 H ( - 10) mg/dL Urine Dip Bedside Urine Glucose Negative Bedside Urine Bilirubin - Negative Bedside Urine Ketone - Negative Urine Specific [place] 1.010 Bedside Urine Occult Blood - Negative Bedside Urine pH 6.5 Bedside Urine Protein - Negative Bedside Urine Urobilinogen - Negative Bedside Urine Nitrite - Negative Discharge Plan Departure Patient Disposition: Left Against Medical Advice Clinical Impression: Alcoholic intoxication Qualifiers: Complication of substance-induced condition: uncomplicated Qualified Code(s): F10.920 - Alcohol use, unspecified with intoxication, uncomplicated Discharge Date/Time: 07/27/19 18:57 Instructions: DI for Alcohol Abuse Prescriptions: No Action No Known Home Medications RF: 0 Stand Alone Forms: Against Medical Advice <Sherine Blanchard MD - Last Filed: 07/28/19 08:22> Sign Out Provider Sign Out Attestation: I was immediately available in the department for consultation throughout this patient's visit. I agree with documentation as above. Sherine Blanchard MD
--- NOTE | 2019-07-27 16:11 | PC.NURSE ---
IV attempt x1 right inner forearm (site chosen by pt). Blood return noted,unable to advance cath.Nurse wanted to attempt to float in catheter with NS flush.Pt stated Pull it out!.Nurse removed cath (intact) per pt request.Offered pt to have another nurse start IV.Pt said No. Pt proceeded to instruct nurse as to proper way to start it (IV).Pt states It was my job. 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 Pt's nurse Tash presented in room,will start his IV.
[2019-07-27] MEDS: MAGNESIUM SULFATE 2 GM, FOLIC ACID 1 MG, THIAMINE 100 MG, MULTIVITAMIN 10 ML in SODIUM ... IV (16:40)
[2019-07-27 16:45] VITALS: PULSE 100; RESP 12; O2SAT 97
[2019-07-27 16:51] LABS: Add Manual Diff / Slide Review NO; Basophils Absolute Auto 0 /uL (0-100); Basophils Percent Auto 0.6 % (0-2); Eosinophils Absolute Auto 0 /uL (0-450); Eosinophils Percent Auto 0.1 % (2-4); Hematocrit 44.6 % (41-53); Hemoglobin 15.2 g/dL (13.5-17.5); Lymphocytes Absolute Auto 4000 /uL (1100-4500); Lymphocytes Percent Auto 55.2 % (25-40); Mean Corpuscular HGB Conc 34.2 % (30-36); Mean Corpuscular Hemoglobin 30.4 PG (26-34); Mean Corpuscular Volume 88.9 fL (80-100); Monocytes Absolute Auto 300 /uL (0-900); Monocytes Percent Auto 3.9 % (3-14); Neutrophils Absolute Auto 2900 /uL (1500-7000); Neutrophils Percent Auto 40.2 % (50-75); Platelet Count 263 X10^3/uL (150-400); Red Blood Cell Count 5.02 X10^6/uL (4.5-5.9); Red Cell Distribution Width 13.9 % (11.6-14.8); White Blood Cell Count 7.2 X10^3/uL (4.5-11.0)
[2019-07-27 16:58] LABS: INR 0.9 (0.9-1.3); Prothrombin Time 10.4 SECONDS (10.1-12.7)
[2019-07-27 17:04] LABS: Alanine Aminotransferase 46 IU/L (<50); Albumin 5.4 g/dL (3.5-5.0); Albumin Globulin Ratio 1.5 (1.0-2.8); Alkaline Phosphatase 45 U/L (38-126); Aspartate Aminotransferase 82 IU/L (17-59); BUN Creatinine Ratio 11.9 (6-22); Bilirubin Total 0.6 mg/dL (0.2-1.3); Bilirubin Unconjugated 0.4 mg/dL (0.0-1.1); Blood Urea Nitrogen 8 mg/dL (9-20); Calcium 9.3 mg/dL (8.4-10.2); Carbon Dioxide 29 mmol/L (22-32); Chloride 101 mmol/L (98-107); Estimated Glomerular Filt Rate > 60.0 mL/min (>60); Globulin 3.7 g/dL (1.7-4.1); Glucose 96 mg/dL (70-100); HEMOLYSIS < 15 (0-50); Lipase 202 U/L (23-300); Magnesium 2.1 mg/dL (1.6-2.3); Phosphorous 4.1 mg/dL (2.5-4.5); Potassium 4.3 mmol/L (3.4-5.1); Sodium 145 mmol/L (137-145); Total Protein 9.1 g/dL (6.3-8.2)
[2019-07-27 17:11] LABS: Ethanol (ETOH) 378 mg/dL
[2019-07-27 17:19] LABS: UR Morphine/Opiate cutoff 300 Negative (Negative); Ur Creatinine Normal (Normal); Ur Specific Gravity Normal (Normal); Urine Amphetamines Negative (Negative); Urine Barbiturates Negative (Negative); Urine Benzodiazepines Negative (Negative); Urine Cocaine Negative (Negative); Urine MDMA Negative (Negative); Urine Methadone Negative (Negative); Urine Methamphetamines Negative (Negative); Urine Oxycodone Negative (Negative); Urine Phencyclidine Negative (Negative); Urine Tetrahydrocannabinol Negative (Negative); Urine Tricyclic Antidepressant Negative (Negative); Urine pH Normal (Normal)
[2019-07-27] MEDS: ONDANSETRON 4 MG/2 ML INJ IV (17:27)
[2019-07-27] MEDS: ACETAMINOPHEN 325 MG TABLET 650 MG PO (17:27)
[2019-07-27 17:46] VITALS: BP 141/95; PULSE 92; RESP 14; O2SAT 96
--- NOTE | 2019-07-27 18:54 | PC.NURSE ---
BRYON and RN went into room as patient was saying he was going to leave. Tried to convince him to stay but he refuses. He denies SI and or harming others. He thinks that he can do this on his own. He will find his own detox place. Signed out ATUL
== END 2019-07-27 18:57 | disposition left against medical advice (07) ==
PROVIDERS: Emergency Provider Nurse Practitioner Family
DX: F10.920 Alcohol use, unspecified with intoxication, uncomplicated (principal); R11.2 Nausea with vomiting, unspecified
CPT/HCPCS: 36415; 80053; 80076; 80305; 80320; 81003; 83690; 83735; 84100; 85025; 85610; 93005; 93010; 96361; 96374; 99284; J2405; J3475

== ENCOUNTER 2019-08-06 14:18 | Inpatient (IN) | payer OTHER, SELFPAY ==
[2019-08-06] VITALS (7 sets, daily range): BP systolic 137–156; BP diastolic 91–103; PULSE 90–117; RESP 16–21; TEMP 37–37.2; O2SAT 95–100; BMI 21.9
--- NOTE | 2019-08-06 14:29 | ED.ALCOHOL ---
HPI - Alcohol General Chief Complaint: Toxicology Problem Stated Complaint: ETOH withdrawls Time Seen by Provider: 08/06/19 14:22 Source: patient and family Mode of arrival: Ambulatory Limitations: no limitations History of Present Illness HPI narrative: 38-year-old male former smoker with extensive alcohol history including previously up to 18 beers per day and now no less than a presents with family in the chief complaint of shaking and being very unsteady with some sweating and abdominal pain. He presents under the circumstances when withdrawing from alcohol. He has not had any attempts at rehab in quite some time. MD complaint: alcohol intoxication, alcohol withdrawal and alcohol dependence Last drink: just prior to this admission Chronic alcohol use: Yes Previous visits for alcohol intoxication: Yes Recent trauma: No Associated symptoms: nausea and abdominal pain Treatments prior to arrival: none Related Data Home Medications Medication Instructions Recorded Confirmed No Known Home Medications 07/27/19 07/30/19 Allergies Allergy/AdvReac Type Severity Reaction Status Date / Time No Known Drug Allergies Allergy Verified 08/06/19 14:37 Review of Systems Constitutional Constitutional: Reports chills, Denies fatigue, Denies fever(s), Denies frequent falls, Denies lethargy and Reports weakness Eyes Eyes: Denies change in vision, Denies eye discharge, Denies irritation and Denies loss of vision ENT Ears, Nose, Mouth, and Throat: Denies change in voice, Denies dizziness, Denies neck pain, Denies sore throat and Denies throat swelling Cardiovascular Cardiovascular: Denies chest pain, Denies irregular heart rhythm, Denies lightheadedness, Denies palpitations, Denies dyspnea, Denies dyspnea on exertion and Denies orthopnea Respiratory Respiratory: Denies cough, Denies dyspnea, Denies dyspnea on exertion and Denies wheezing Gastrointestinal Gastrointestinal: Reports abdominal pain, Denies change in bowel habits, Denies diarrhea, Reports nausea and Denies vomiting Genitourinary Genitourinary: Denies hematuria, Denies flank pain, Denies urinary incontinence and Denies urinary urgency Musculoskeletal Musculoskeletal: Denies back pain, Denies muscle weakness, Denies neck pain, Denies numbness and Denies tingling Integumentary/Breasts Skin/Breast: Denies pruritus, Denies erythema, Denies rash and Denies wounds Neurologic Neurologic: Denies behavioral changes, Reports confusion, Denies dizziness, Denies frequent falls, Denies loss of vision, Denies numbness, Denies tingling and Reports weakness Psychiatric Psychiatric: Reports anxiety, Denies behavioral changes, Reports confusion, Denies depression, Reports irritability, Denies homicidal ideation and Denies suicidal ideation Endocrine Endocrine: Denies fatigue, Denies flushing and Denies palpitations Hematologic/Lymphatic Hematologic/Lymphatic: Denies easy bruising Allergic/Immunologic Allergic/Immunologic: Denies urticaria, Denies throat swelling and Denies wheezing Patient History Medical History Alcoholism (Acute) Palpitation (Acute) Surgical History No history of previous surgery (Acute) Social History Smoking Status: Former smoker alcohol intake: current Smoking Status: Former smoker tobacco type: vaping alcohol intake frequency: 3 or more drinks per day Substance Use Type: does not use Exam Narrative Exam Narrative: GENERAL: [38] year old patient appears stated age. Well-nourished, well-developed patient, in mild distress. Anxious, tearful, tremulous HEAD: Atraumatic. Normocephalic. EYES: Pupils equal round and reactive. Extraocular motions intact. No scleral icterus. No injection or drainage. ENT: Nose without bleeding, purulent drainage. Throat without erythema, tonsillar hypertrophy or exudate. Airway patent. NECK: Trachea midline. Non tender CARDIOVASCULAR: Tachycardic but regular rhythm without murmurs, gallops, or rubs. RESPIRATORY: Clear to auscultation. Breath sounds equal bilaterally. No wheezes, rales, or rhonchi. GASTROINTESTINAL: Abdomen soft, non-tender, nondistended. EXTREMITIES: No edema or joint tenderness. BACK: Nontender without deformity or crepitance. No flank tenderness. NEURO: AOx3. SKIN: No rash or erythema of visible areas Initial Vital Signs Initial Vital Signs: Vital Signs Temperature 98.9 F 08/06/19 14:30 Pulse Rate 117 H 08/06/19 14:30 Respiratory Rate 21 08/06/19 14:30 Blood Pressure 156/103 H 08/06/19 14:30 Pulse Oximetry 97 08/06/19 14:30 Course Course Course Narrative: Annelise for Alcohol Withdrawal from [facility] on 08/06/2019 All calculations should be rechecked by clinician prior to use RESULT SUMMARY: 18 points Patients with scores ?9 may require medication for withdrawal. INPUTS: Nausea/vomiting ?> 4 = Intermittent nausea with dry heaves Tremor ?> 4 = Moderate, with patient's arms extended Paroxysmal sweats ?> 2 = (More severe symptoms) Anxiety ?> 4 = Moderately anxious, or guarded, so anxiety is inferred Agitation ?> 2 = (More severe symptoms) Tactile disturbances ?> 0 = None Auditory disturbances ?> 0 = Not present Visual disturbances ?> 0 = Not present Headache/fullness in head ?> 2 = Mild Orientation/clouding of sensorium ?> 0 = Oriented, can do serial additions Orders Ordered: ED Orders 08/06/19 14:33 Urine Drug Screen, Rapid Stat 08/06/19 14:41 EKG-12 Lead Stat 08/06/19 15:00 Complete Blood Count AUTO DIFF Stat Comprehensive Metabolic Panel Stat Ethanol (ETOH) Stat Hepatic (Liver) Panel Stat Lipase Stat Magnesium Stat Prothrombin Time INR Stat Type and Screen Stat 08/06/19 16:36 CT head/brain wo con Stat Sodium Chloride (Normal Saline 0.9%) 1,000 mls @ 150 mls/hr IV CONT EMERITA Last Admin: 08/06/19 15:01 Dose: 150 mls/hr Documented by: NELLIE Discontinued Medications Thiamine HCl 200 mg/ Sodium (Chloride) 52 mls @ 208 mls/hr IV NOW ONE Stop: 08/06/19 14:37 Last Infusion: 08/06/19 15:20 Dose: 0 mls/hr Documented by: Admin: 08/06/19 15:01 Dose: 208 mls/hr Documented by: NELLIE Lorazepam (Ativan) 1 mg IV NOW ONE Stop: 08/06/19 17:28 Phenobarbital (Phenobarbital) 260 mg IV NOW ONE Stop: 08/06/19 14:37 Last Admin: 08/06/19 15:02 Dose: 260 mg Documented by: NELLIE Vital Signs Vital signs: Vital Signs - 8 hr 08/06/19 14:30 08/06/19 15:35 Temperature 98.9 F Pulse Rate 117 H 105 H Respiratory Rate 21 17 Blood Pressure 156/103 H Blood Pressure [Right Arm] 145/96 H Pulse Oximetry 97 96 MDM - Alcohol Lab Data Result diagrams: 08/06/19 15:00 08/06/19 15:00 Labs: Lab Results 08/06/19 08/06/19 08/06/19 Range/Units 14:33 15:00 15:00 WBC 5.9 (4.5-11.0) X10^3/uL RBC 4.42 L (4.5-5.9) X10^6/uL Hgb 13.4 L (13.5-17.5) g/dL Hct 39.9 L (41-53) % MCV 90.2 (80-100) fL MCH 30.4 (26-34) PG MCHC 33.7 (30-36) % RDW 14.8 (11.6-14.8) % Plt Count 259 (150-400) X10^3/uL Neut % (Auto) 40.5 L (50-75) % Lymph % (Auto) 52.9 H (25-40) % [place] % (Auto) 5.9 (3-14) % Eos % (Auto) 0.1 L (2-4) % Baso % (Auto) 0.6 (0-2) % Neut # (Auto) 2400 (8477-9976) /uL Lymph # (Auto) 3100 (9328-9012) /uL [place] # (Auto) 400 (0-900) /uL Eos # (Auto) 0 (0-450) /uL Baso # (Auto) 0 (0-100) /uL PT (10.1-12.7) SECONDS INR (0.9-1.3) Sodium 147 H (137-145) mmol/L Potassium 4.3 (3.4-5.1) mmol/L Chloride 102 (98-107) mmol/L Carbon Dioxide 33 H (22-32) mmol/L BUN 7 L (9-20) mg/dL Creatinine 0.70 (0.66-1.25) mg/dL Estimated GFR > 60.0 (>60) mL/min BUN/Creatinine Ratio 10.0 (6-22) Glucose 110 H (70-100) mg/dL Calcium 8.9 (8.4-10.2) mg/dL Magnesium 2.0 (1.6-2.3) mg/dL Total Bilirubin 0.5 (0.2-1.3) mg/dL Conjugated Bilirubin 0.0 (0.0-0.3) md/dL Unconjugated Bilirubin 0.5 (0.0-1.1) mg/dL AST 58 (17-59) IU/L ALT 27 (<50) IU/L Alkaline Phosphatase 36 L (38-126) U/L Total Protein 8.6 H (6.3-8.2) g/dL Albumin 5.1 H (3.5-5.0) g/dL Globulin 3.5 (1.7-4.1) g/dL Albumin/Globulin Ratio 1.5 (1.0-2.8) Lipase 298 (23-300) U/L U Opiates 300ng/mL cut Negative (Negative) Ur Oxycodone Screen Negative (Negative) Urine Methadone Screen Negative (Negative) Ur Barbiturates Screen Negative (Negative) U Tricyclic Antidepress Negative (Negative) Ur Phencyclidine Scrn Negative (Negative) Ur Amphetamines Screen Negative (Negative) U Methamphetamines Scrn Negative (Negative) Ur MDMA Scrn (Ecstasy) Negative (Negative) U Benzodiazepines Scrn Negative (Negative) Urine Cocaine Screen Negative (Negative) U Marijuana (THC) Screen Negative (Negative) Ethyl Alcohol > 300 H ( - 10) mg/dL Blood Type Antibody Screen 08/06/19 08/06/19 Range/Units 15:00 15:00 WBC (4.5-11.0) X10^3/uL RBC (4.5-5.9) X10^6/uL Hgb (13.5-17.5) g/dL Hct (41-53) % MCV (80-100) fL MCH (26-34) PG MCHC (30-36) % RDW (11.6-14.8) % Plt Count (150-400) X10^3/uL Neut % (Auto) (50-75) % Lymph % (Auto) (25-40) % [place] % (Auto) (3-14) % Eos % (Auto) (2-4) % Baso % (Auto) (0-2) % Neut # (Auto) (8482-1444) /uL Lymph # (Auto) (6608-5257) /uL [place] # (Auto) (0-900) /uL Eos # (Auto) (0-450) /uL Baso # (Auto) (0-100) /uL PT 10.9 (10.1-12.7) SECONDS INR 1.0 (0.9-1.3) Sodium (137-145) mmol/L Potassium (3.4-5.1) mmol/L Chloride (98-107) mmol/L Carbon Dioxide (22-32) mmol/L BUN (9-20) mg/dL Creatinine (0.66-1.25) mg/dL Estimated GFR (>60) mL/min BUN/Creatinine Ratio (6-22) Glucose (70-100) mg/dL Calcium (8.4-10.2) mg/dL Magnesium (1.6-2.3) mg/dL Total Bilirubin (0.2-1.3) mg/dL Conjugated Bilirubin (0.0-0.3) md/dL Unconjugated Bilirubin (0.0-1.1) mg/dL AST (17-59) IU/L ALT (<50) IU/L Alkaline Phosphatase (38-126) U/L Total Protein (6.3-8.2) g/dL Albumin (3.5-5.0) g/dL Globulin (1.7-4.1) g/dL Albumin/Globulin Ratio (1.0-2.8) Lipase (23-300) U/L U Opiates 300ng/mL cut (Negative) Ur Oxycodone Screen (Negative) Urine Methadone Screen (Negative) Ur Barbiturates Screen (Negative) U Tricyclic Antidepress (Negative) Ur Phencyclidine Scrn (Negative) Ur Amphetamines Screen (Negative) U Methamphetamines Scrn (Negative) Ur MDMA Scrn (Ecstasy) (Negative) U Benzodiazepines Scrn (Negative) Urine Cocaine Screen (Negative) U Marijuana (THC) Screen (Negative) Ethyl Alcohol ( - 10) mg/dL Blood Type O Positive Antibody Screen Negative Urine Dip Bedside Urine Glucose Negative Bedside Urine Bilirubin - Negative Bedside Urine Ketone - Negative Urine Specific [place] 1.010 Bedside Urine Occult Blood - Negative Bedside Urine pH 7.5 Bedside Urine Protein - Negative Bedside Urine Urobilinogen - Negative Bedside Urine Nitrite - Negative Bedside Urine Leukocytes - Negative Esterase Imaging Data CT scan - head: Radiologist's Impressoin: Jose Mujica M [address] [address] [address] Scan Report Signed Patient: Jose Mujica [facility]#: [id number] : 1980Acct:[id number] Age/Sex: 38 / MDate of Service: 08/06/19 Loc: ED Accession Number: [id number] Procedure: CT head/brain wo con Ordering Provider: Arnulfo Rodgers D.O. PROCEDURE: CT HEAD/BRAIN WO CON INDICATIONS: headache, ataxia, confusion TECHNIQUE: Noncontrast 4.5 mm thick angled axial sections acquired from the foramen magnum to the vertex, with coronal and sagittal reformats. For radiation dose reduction, the following was used: automated exposure control, adjustment of mA and/or kV according to patient size. COMPARISON: [facility], CT, CT HEAD/BRAIN WO CON, 11/16/2018, 11:55. FINDINGS: Image quality: Mild image degradation secondary to patient motion artifact. CSF spaces: Basal cisterns are patent. No extra-axial fluid collections. Ventricles are normal in size and shape. Brain: No midline shift. No intracranial masses or hemorrhage. Harris-white matter interface is normal. Skull and face: Calvarium and visualized facial bones are intact, without suspicious lesions. Sinuses: Visualized sinuses and mastoids are clear. IMPRESSION: CT head without acute intracranial abnormalities or mass/mass effect. Dictated by: Keshawn Da Silva M.D. on 08/06/2019 at 17:10 Approved by: Keshawn Da Silva M.D. on 08/06/2019 at 17:12 [facility] Narrative Medical decision making narrative: patient showed some improvement after administration of Phenobarb and Thiamine but is ramping up again. Ativan ordered. Though improved his CIWA score is still consistent with admission and he will need to be brought into the hospital for ongoing evaluation stabilization of his condition. Discharge Plan Departure Patient Disposition: Admitted as Observation Clinical Impression: Alcohol withdrawal syndrome Qualifiers: Complication of substance-induced condition: with delirium Qualified Code(s): F10.231 - Alcohol dependence with withdrawal delirium
[2019-08-06] MEDS: SODIUM CHLORIDE 0.9% 1,000 ML 150 ML IV (15:01)
[2019-08-06] MEDS: THIAMINE 200 MG in SODIUM CHLORIDE 0.9% 50 ML 208 ML IV (15:01)
[2019-08-06] MEDS: PHENobarbital 65 MG/ML VIAL 260 MG IV (15:02)
[2019-08-06 15:30] LABS: Prothrombin Time 10.9 SECONDS (10.1-12.7)
[2019-08-06 15:31] LABS: Add Manual Diff / Slide Review NO; Basophils Absolute Auto 0 /uL (0-100); Basophils Percent Auto 0.6 % (0-2); Eosinophils Absolute Auto 0 /uL (0-450); Eosinophils Percent Auto 0.1 % (2-4); Hematocrit 39.9 % (41-53); Hemoglobin 13.4 g/dL (13.5-17.5); Lymphocytes Absolute Auto 3100 /uL (1100-4500); Lymphocytes Percent Auto 52.9 % (25-40); Mean Corpuscular HGB Conc 33.7 % (30-36); Mean Corpuscular Hemoglobin 30.4 PG (26-34); Mean Corpuscular Volume 90.2 fL (80-100); Monocytes Absolute Auto 400 /uL (0-900); Monocytes Percent Auto 5.9 % (3-14); Neutrophils Absolute Auto 2400 /uL (1500-7000); Neutrophils Percent Auto 40.5 % (50-75); Platelet Count 259 X10^3/uL (150-400); Red Blood Cell Count 4.42 X10^6/uL (4.5-5.9); Red Cell Distribution Width 14.8 % (11.6-14.8); White Blood Cell Count 5.9 X10^3/uL (4.5-11.0)
[2019-08-06 15:36] LABS: Alanine Aminotransferase 27 IU/L (<50); Albumin 5.1 g/dL (3.5-5.0); Albumin Globulin Ratio 1.5 (1.0-2.8); Alkaline Phosphatase 36 U/L (38-126); Aspartate Aminotransferase 58 IU/L (17-59); Bilirubin Total 0.5 mg/dL (0.2-1.3); Bilirubin Unconjugated 0.5 mg/dL (0.0-1.1); Blood Urea Nitrogen 7 mg/dL (9-20); Calcium 8.9 mg/dL (8.4-10.2); Carbon Dioxide 33 mmol/L (22-32); Chloride 102 mmol/L (98-107); Estimated Glomerular Filt Rate > 60.0 mL/min (>60); Globulin 3.5 g/dL (1.7-4.1); Glucose 110 mg/dL (70-100); HEMOLYSIS < 15 (0-50); Lipase 298 U/L (23-300); Potassium 4.3 mmol/L (3.4-5.1); Sodium 147 mmol/L (137-145); Total Protein 8.6 g/dL (6.3-8.2)
[2019-08-06 15:38] LABS: UR Morphine/Opiate cutoff 300 Negative (Negative); Ur Creatinine Normal (Normal); Ur Specific Gravity Normal (Normal); Urine Amphetamines Negative (Negative); Urine Barbiturates Negative (Negative); Urine Benzodiazepines Negative (Negative); Urine Cocaine Negative (Negative); Urine MDMA Negative (Negative); Urine Methadone Negative (Negative); Urine Methamphetamines Negative (Negative); Urine Oxycodone Negative (Negative); Urine Phencyclidine Negative (Negative); Urine Tetrahydrocannabinol Negative (Negative); Urine Tricyclic Antidepressant Negative (Negative); Urine pH Normal (Normal)
--- NOTE | 2019-08-06 16:36 | DI.CT.S_ITS ---
PROCEDURE: CT HEAD/BRAIN WO CON INDICATIONS: headache, ataxia, confusion TECHNIQUE: Noncontrast 4.5 mm thick angled axial sections acquired from the foramen magnum to the vertex, with coronal and sagittal reformats. For radiation dose reduction, the following was used: automated exposure control, adjustment of mA and/or kV according to patient size. COMPARISON: [facility], CT, CT HEAD/BRAIN WO CON, 11/16/2018, 11:55. FINDINGS: Image quality: Mild image degradation secondary to patient motion artifact. CSF spaces: Basal cisterns are patent. No extra-axial fluid collections. Ventricles are normal in size and shape. Brain: No midline shift. No intracranial masses or hemorrhage. Harris-white matter interface is normal. Skull and face: Calvarium and visualized facial bones are intact, without suspicious lesions. Sinuses: Visualized sinuses and mastoids are clear. IMPRESSION: CT head without acute intracranial abnormalities or mass/mass effect. Dictated by: Keshawn Da Silva M.D. on 08/06/2019 at 17:10 Approved by: Keshawn Da Silva M.D. on 08/06/2019 at 17:12
[2019-08-06] MEDS: LORazepam 2 MG/ML INJ 1 MG IV (18:04)
--- NOTE | 2019-08-06 18:16 | P.HP_ITS ---
History of Present Illness History of Present Illness Date Patient Seen: 08/06/19 Time Patient Seen: 18:16 Chief complaint: ETOH withdrawls Narrative: This is a 38-year-old male with a long history of alcohol dependency who presents with tremor, agitation and inability to tolerate withdrawal symptoms at home. 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 His biological father was a chronic alcoholic also. Two weeks ago he called his adopted father in [place] and asked him to come out to help him as he was developing a significant tremor and wanted to stop drinking. He apparently lives alone in an apartment here in town. He finally came in today because the head tremor was becoming quite severe and his father could not any longer lift him off the toilet. He has had no respiratory symptoms, fevers, chills, abdominal pain, vomiting, diarrhea, bleeding. His last alcohol was an unknown amount of beer yesterday and a few days before that some whiskey. On in itial evaluation he appears to have quite a bit of tremor and so undergoes CT scan as a precaution, showing no evidence of an intracerebral bleed. He does not mention a documented chart episode 1 week ago in which he presented to his primary care physician with a description of a febrile/GI illness [place] cruise ship in the previous week. He did not mention any travel during my interview. He appears to quite clearly meet the classic triad of thiamine deficiency with ataxia, encephalopathy and ocular motor dysfunction. He is unable to demonstrate lateral gaze without prompting. Patient History Medical History Alcoholism (Acute) Palpitation (Acute) Surgical History No history of previous surgery (Acute) Family & Social History Family History (Updated 08/06/19 @ 20:31 by Hiren Tolliver MD) Father Alcoholism Mother Healthy adult Family history unavailable: No Social History: His backup decision maker is Bakari Gonzalez, his father who accompanies him today. His father lives in [place] normally but is here visiting. 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 He vapes nicotine, denies THC and all other drugs. Safety & Behavioral: Feels Safe in Current Yes Environment Been Physically Hurt or No Threatened By a Person Suicidal Ideation Description None Tobacco & Substance use: Smoking Status Former smoker alcohol intake current alcohol intake frequency 3 or more drinks per day Substance Use Type does not use Meds Home Medications and Allergies Home Medications Medication Instructions Recorded Confirmed Type No Known Home Medications 07/27/19 07/30/19 History Allergies Allergy/AdvReac Type Severity Reaction Status Date / Time No Known Drug Allergies Allergy Verified 08/06/19 14:37 Review of Systems Review of Systems Narrative: Positive for tremor, weakness, confusion, agitation. Negative for fevers, chills, sweats, nausea, vomiting, abdominal pain, chest pain, coughing, bleeding, rash, dysuria, headaches, seizures, sore throat, difficulty talking ROS: Yes All systems reviewed with the patient and are negative except as otherwise documented Exam Vital Signs (past 8 hours): - 08/06/19 14:30 08/06/19 15:35 Temperature 98.9 F Pulse Rate 117 H 105 H Respiratory Rate 21 17 Blood Pressure 156/103 H Blood Pressure [Right Arm] 145/96 H Pulse Oximetry 97 96 Oxygen Delivery Method Room Air Narrative Exam Narrative: He is alert and oriented x3. He appears to be in moderate distress from an intermittent severe head tremor that subsides when he appears to be distracted. Pupils are equally round and reactive to light and accommodation. Extraocular muscles are not working well. He does not track a light although he insists that he is looking at the light. With reminders he does look up, lateral and medial but does not look down. Sclerae are pink and nonicteric No lymph nodes are felt head, neck, supraclavicular area Heart is tachycardic, regular rhythm, no murmur Lungs are clear to auscultation bilaterally Abdomen is soft, nontender, bowel sounds positive, no organomegaly, without masses Extremities have no ankle edema Skin has no rash or jaundice Neuro exam motor function is 5/5 throughout. Cranial nerves 2-12 best test intact except for the extraocular movements as noted above. [id number] pointing is normal He has a moderate tremor of the upper extremities He has severe head Huang tremor that subsides when he is distracted. Gait and balance are not tested. Objective Labs Result Diagrams: 08/06/19 15:00 08/06/19 15:00 Labs: Laboratory Results - last 24 hr 08/06/19 08/06/19 08/06/19 14:33 15:00 15:00 WBC 5.9 RBC 4.42 L Hgb 13.4 L Hct 39.9 L MCV 90.2 MCH 30.4 MCHC 33.7 RDW 14.8 Plt Count 259 Neut % (Auto) 40.5 L Lymph % (Auto) 52.9 H [place] % (Auto) 5.9 Eos % (Auto) 0.1 L Baso % (Auto) 0.6 Neut # (Auto) 2400 Lymph # (Auto) 3100 [place] # (Auto) 400 Eos # (Auto) 0 Baso # (Auto) 0 PT INR Sodium 147 H Potassium 4.3 Chloride 102 Carbon Dioxide 33 H BUN 7 L Creatinine 0.70 Estimated GFR > 60.0 BUN/Creatinine Ratio 10.0 Glucose 110 H Calcium 8.9 Magnesium 2.0 Total Bilirubin 0.5 Conjugated Bilirubin 0.0 Unconjugated Bilirubin 0.5 AST 58 ALT 27 Alkaline Phosphatase 36 L Total Protein 8.6 H Albumin 5.1 H Globulin 3.5 Albumin/Globulin Ratio 1.5 Lipase 298 U Opiates 300ng/mL cut Negative Ur Oxycodone Screen Negative Urine Methadone Screen Negative Ur Barbiturates Screen Negative U Tricyclic Antidepress Negative Ur Phencyclidine Scrn Negative Ur Amphetamines Screen Negative U Methamphetamines Scrn Negative Ur MDMA Scrn (Ecstasy) Negative U Benzodiazepines Scrn Negative Urine Cocaine Screen Negative U Marijuana (THC) Screen Negative Ethyl Alcohol > 300 H Blood Type Antibody Screen 08/06/19 08/06/19 15:00 15:00 WBC RBC Hgb Hct MCV MCH MCHC RDW Plt Count Neut % (Auto) Lymph % (Auto) [place] % (Auto) Eos % (Auto) Baso % (Auto) Neut # (Auto) Lymph # (Auto) [place] # (Auto) Eos # (Auto) Baso # (Auto) PT 10.9 INR 1.0 Sodium Potassium Chloride Carbon Dioxide BUN Creatinine Estimated GFR BUN/Creatinine Ratio Glucose Calcium Magnesium Total Bilirubin Conjugated Bilirubin Unconjugated Bilirubin AST ALT Alkaline Phosphatase Total Protein Albumin Globulin Albumin/Globulin Ratio Lipase U Opiates 300ng/mL cut Ur Oxycodone Screen Urine Methadone Screen Ur Barbiturates Screen U Tricyclic Antidepress Ur Phencyclidine Scrn Ur Amphetamines Screen U Methamphetamines Scrn Ur MDMA Scrn (Ecstasy) U Benzodiazepines Scrn Urine Cocaine Screen U Marijuana (THC) Screen Ethyl Alcohol Blood Type O Positive Antibody Screen Negative Assessment & Plan Assessment & Plan narrative: Alcohol Withdrawal Delirium Tremens, acute, present on admission -begin routine lorazepam and as needed benzodiazepines. -phenobarbital started in the emergency department. -continue IV fluids, thiamine and supportive care for alcohol withdrawal -initial screening labs are close to normal except for the very high alcohol level greater than 300. Chronic Alcoholic Tremor -I discussed with him that it will be only after a completion of his acute withdrawal symptoms when we can be sure of what his chronic alcoholic neurologic damage might be. -he is appropriately concerned that he has Wernicke-Korsakoff syndrome based on his progressive neurologic symptoms. -CT brain without abnormality Weakness -PT eval -thiamine, B12 and multivitamin -he is likely to need additional care in the home or in a facility. 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
[2019-08-06 20:44] LABS: Ethanol (ETOH) 405 mg/dL
[2019-08-06] MEDS: LORazepam 1 MG TABLET 2 MG PO (20:46)
--- NOTE | 2019-08-06 20:55 | PC.ADMIT ---
[address] [employer] Admission Note: The patient,Jose Mujica,38 y/o, was given written information regarding hospital policies, unit procedures and contact persons. Patient's smoking status: Former smoker. Vital Signs - 8 hr 08/06/19 14:30 08/06/19 15:35 08/06/19 18:34 Temperature 98.9 F Pulse Rate 117 H 105 H 105 H Respiratory Rate 21 17 16 Blood Pressure 156/103 H Blood Pressure [Right Arm] 145/96 H 145/99 H Pulse Oximetry 97 96 95 Pt arrived on unite at approx 2044 from ER in wheelchair. He c/o anxiety. Hypertensive at 150/102. CIWA 11. advised BAL 405.
[2019-08-06] MEDS: THIAMINE 500 MG in SODIUM CHLORIDE 0.9% 50 ML 220 ML IV (21:35)
[2019-08-06] MEDS: DEXTROSE 5%-0.9% NS 1,000 ML 100 ML IV (21:35)
--- NOTE | 2019-08-06 22:37 | PC.NURSE ---
Pt is calm and cooperative, A and O x 4 but delayed. He is very tremulous, c/o anxiety, CIWA = 11. He states he can drink 22 drinks in 24 hours, 18 drinks is light. He has been in outpatient programs several times. He often is sober for up to nine months at a time. His father is with him and brought him food, stated patient is a very nice sukhdeep. Patient is voiding clear yellow, no BM. Per patient and father, BM at home was bright red. Emesis was green and yellow. Pt denies pain but for a MALIN.
[2019-08-06] MEDS: diazePAM 10 MG/2 ML SYRINGE 5 MG IV (22:52)
[2019-08-07] VITALS (8 sets, daily range): BP systolic 124–145; BP diastolic 78–99; PULSE 59–95; RESP 16–18; TEMP 36.9–37.4; O2SAT 98–100
[2019-08-07] MEDS: DEXTROSE 5%-0.9% NS 1,000 ML 100 ML IV ×2 (05:43→12:53)
[2019-08-07] MEDS: LORazepam 1 MG TABLET 2 MG PO (05:59)
[2019-08-07 06:20] LABS: Add Manual Diff / Slide Review NO; Basophils Absolute Auto 0 /uL (0-100); Basophils Percent Auto 0.8 % (0-2); Eosinophils Absolute Auto 0 /uL (0-450); Eosinophils Percent Auto 0.5 % (2-4); Hematocrit 33.2 % (41-53); Hemoglobin 11.2 g/dL (13.5-17.5); Lymphocytes Absolute Auto 1900 /uL (1100-4500); Lymphocytes Percent Auto 32.8 % (25-40); Mean Corpuscular HGB Conc 33.8 % (30-36); Mean Corpuscular Hemoglobin 30.6 PG (26-34); Mean Corpuscular Volume 90.7 fL (80-100); Monocytes Absolute Auto 500 /uL (0-900); Monocytes Percent Auto 8.4 % (3-14); Neutrophils Absolute Auto 3300 /uL (1500-7000); Neutrophils Percent Auto 57.5 % (50-75); Platelet Count 185 X10^3/uL (150-400); Red Blood Cell Count 3.66 X10^6/uL (4.5-5.9); Red Cell Distribution Width 14.8 % (11.6-14.8); White Blood Cell Count 5.7 X10^3/uL (4.5-11.0)
[2019-08-07 06:25] LABS: Ethanol (ETOH) < 10 mg/dL
[2019-08-07 06:26] LABS: Alanine Aminotransferase 20 IU/L (<50); Albumin Globulin Ratio 1.4 (1.0-2.8); Alkaline Phosphatase 29 U/L (38-126); Aspartate Aminotransferase 45 IU/L (17-59); BUN Creatinine Ratio 12.9 (6-22); Bilirubin Total 0.6 mg/dL (0.2-1.3); Blood Urea Nitrogen 9 mg/dL (9-20); Calcium 8.2 mg/dL (8.4-10.2); Carbon Dioxide 28 mmol/L (22-32); Chloride 102 mmol/L (98-107); Estimated Glomerular Filt Rate > 60.0 mL/min (>60); Globulin 2.8 g/dL (1.7-4.1); Glucose 113 mg/dL (70-100); HEMOLYSIS < 15 (0-50); Potassium 3.9 mmol/L (3.4-5.1); Sodium 139 mmol/L (137-145); Total Protein 6.8 g/dL (6.3-8.2)
[2019-08-07] MEDS: MULTIVITAMIN 1 TABLET 1 TAB PO (08:08)
[2019-08-07] MEDS: FOLIC ACID 1 MG TABLET PO (08:08)
[2019-08-07] MEDS: ENOXAPARIN 40 MG/0.4 ML SYRINGE SUBCUT (08:08)
[2019-08-07] MEDS: THIAMINE 100 MG TABLET PO (08:08)
[2019-08-07] MEDS: THIAMINE 500 MG in SODIUM CHLORIDE 0.9% 50 ML 220 ML IV ×3 (09:51→21:22)
--- NOTE | 2019-08-07 12:24 | CM.DANOTE ---
Patient is a 38 year old male who was admitted on 08/06/19 for ETOH withdrawals. Pt has [facility] for insurance and his PCP is not listed. EMR was reviewed. Per MD, pt with a long hx of ETOH abuse with periods of sobriety and pt has been voluntarily attempting to stop drinking but D.T's were too severe to safely stay home with father support. SW met bedside with pt and father Bakari from [place] ([phone]) and explained role and updated white board and pt was quite groggy and still tremulous with CIWA 11-15. Pt was not fully alert and oriented enough to fully participate in CD assessment but pt was able to express that his interest is in treatment and currently Inpt treatment and father also discussed that he has been researching ways to best support the pt and is in agreement with Inpt CD treatment. Pt confirmed he has a hx of Inpt and outpt treatment but was unable to give specific information before dozing off to sleep. 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 Pt has periods of sobriety of at least a year before relapsing and typically drinks a large amount of beer and whiskey daily. Pt has a hx of multiple ED visits to [facility] for detox/ETOH withdrawal and typically becomes agitated and leaves AMA prior to being set up with treatment. Therefore pt's father (stepfather?) voluntarily drove over from [place] to support pt with attempting sobriety and plans to stay bedside during pt's admit to keep him calm and reduce his risk of leaving AMA. SW discussed that pt will need to be medically stable for d/c to either Detox/Inpt CD treatment and further assessment with pt to confirm his willingness for Inpt CD treatment prior to attempting finding an accepting facility. Father acknowledges understanding. SW did look pt's insurance online for contracted facilities and [facility] shows as being contracted with: [facility], [facility], [facility], [facility], and [facility] but SW will need to call those facilities first to confirm they are contracted with pt's insurance and still provide Inpt CD tx when determined that pt is agreeable with this at d/c. Plan: SW to follow for bedside CD assessment with pt when more medically appropriate to participate in goal directed discussion to confirm that pt is still agreeable with attempting Inpt CD tx and any further community resources. NICKIE Hopkins Discharge Planning/Care Management Advanced directive, confirm from FAMILY Start: 08/06/19 22:12 Freq: Q24H Status: Active Protocol: Document 08/06/19 22:12 SL (Rec: 08/06/19 22:15 SL [id number]) Advance Directive, confirm on record Time 22:15 Person contacted father Copy received No CM Discharge Assessment Start: 08/07/19 12:21 Freq: Status: Active Protocol: Document 08/07/19 12:21 BF (Rec: 08/07/19 12:24 BF [id number]) Discharge Planning Assessment Assigned Director Of Admissions NICKIE Johns DPOA/Assigned Designee Name informally father Bakari Gonzalez Contact Information [phone] Advance Directives? No Advance Directives on File No History Provided By Patient,Family Member,Medical Record Has Patient been admitted in last 30 No days? Prior Living Arrangements Apartment/Condo Household Members none Type of transporation used prior to Drives own vehicle admit Comment Apt alone, independent at baseline, works and drives Independent with ADL's Yes Is patient alert and oriented? Yes Caregiver for Another No Patient/Family Preference Drug/Alcohol Rehab Barriers to Discharge No Discharge Plan Drug Rehabilitation Transportation Arrangement Pending acceptance at facility to determine mode of transport Whiteboard Updated in Patient Room with Yes name and ext. # of Director Of Admissions Review Status In Process Please Provide Date Initial DC 08/07/19 Assessment Was Performed Next Review Type Continued Stay Review
[2019-08-07] MEDS: LORazepam 1 MG TABLET PO ×3 (12:52→21:26)
--- NOTE | 2019-08-07 14:55 | PM.PN.1 ---
Subjective Subjective Date Patient Seen: 08/07/19 Interval history: Patient is a 38-year-old male admitted with severe alcohol withdrawal and concern for Wernicke's encephalopathy. He reports improvement in anxiety and withdrawal symptoms. Last CIWA is 9. He also has resolution of his double vision, head tremor, and inability to ambulate. Exam Vital Signs (past 8 hours): - 08/07/19 08:00 08/07/19 12:00 Temperature 98.5 F 99.4 F Pulse Rate 71 72 Respiratory Rate 16 16 Blood Pressure 142/94 H 139/99 H Pulse Oximetry 98 98 Oxygen Delivery Method Room Air Oxygen Flow Rate 0 Narrative Exam Narrative: General: Alert pleasant male in no acute distress Neurological: No gaze palsy or nystagmus, affect appropriate, recall good, mild bilateral hand tremor, gait okay Objective Labs Result Diagrams: 08/07/19 05:58 08/07/19 05:58 Labs: Laboratory Results - last 24 hr 08/06/19 08/06/19 08/06/19 14:33 15:00 15:00 WBC 5.9 RBC 4.42 L Hgb 13.4 L Hct 39.9 L MCV 90.2 MCH 30.4 MCHC 33.7 RDW 14.8 Plt Count 259 Neut % (Auto) 40.5 L Lymph % (Auto) 52.9 H [place] % (Auto) 5.9 Eos % (Auto) 0.1 L Baso % (Auto) 0.6 Neut # (Auto) 2400 Lymph # (Auto) 3100 [place] # (Auto) 400 Eos # (Auto) 0 Baso # (Auto) 0 PT INR Sodium 147 H Potassium 4.3 Chloride 102 Carbon Dioxide 33 H BUN 7 L Creatinine 0.70 Estimated GFR > 60.0 BUN/Creatinine Ratio 10.0 Glucose 110 H Calcium 8.9 Magnesium 2.0 Total Bilirubin 0.5 Conjugated Bilirubin 0.0 Unconjugated Bilirubin 0.5 AST 58 ALT 27 Alkaline Phosphatase 36 L Total Protein 8.6 H Albumin 5.1 H Globulin 3.5 Albumin/Globulin Ratio 1.5 Lipase 298 U Opiates 300ng/mL cut Negative Ur Oxycodone Screen Negative Urine Methadone Screen Negative Ur Barbiturates Screen Negative U Tricyclic Antidepress Negative Ur Phencyclidine Scrn Negative Ur Amphetamines Screen Negative U Methamphetamines Scrn Negative Ur MDMA Scrn (Ecstasy) Negative U Benzodiazepines Scrn Negative Urine Cocaine Screen Negative U Marijuana (THC) Screen Negative Ethyl Alcohol 405 H* Blood Type Antibody Screen 08/06/19 08/06/19 08/07/19 15:00 15:00 05:58 WBC 5.7 RBC 3.66 L Hgb 11.2 L Hct 33.2 L MCV 90.7 MCH 30.6 MCHC 33.8 RDW 14.8 Plt Count 185 Neut % (Auto) 57.5 Lymph % (Auto) 32.8 D [place] % (Auto) 8.4 Eos % (Auto) 0.5 L Baso % (Auto) 0.8 Neut # (Auto) 3300 Lymph # (Auto) 1900 [place] # (Auto) 500 Eos # (Auto) 0 Baso # (Auto) 0 PT 10.9 INR 1.0 Sodium Potassium Chloride Carbon Dioxide BUN Creatinine Estimated GFR BUN/Creatinine Ratio Glucose Calcium Magnesium Total Bilirubin Conjugated Bilirubin Unconjugated Bilirubin AST ALT Alkaline Phosphatase Total Protein Albumin Globulin Albumin/Globulin Ratio Lipase U Opiates 300ng/mL cut Ur Oxycodone Screen Urine Methadone Screen Ur Barbiturates Screen U Tricyclic Antidepress Ur Phencyclidine Scrn Ur Amphetamines Screen U Methamphetamines Scrn Ur MDMA Scrn (Ecstasy) U Benzodiazepines Scrn Urine Cocaine Screen U Marijuana (THC) Screen Ethyl Alcohol Blood Type O Positive Antibody Screen Negative 08/07/19 08/07/19 05:58 05:58 WBC RBC Hgb Hct MCV MCH MCHC RDW Plt Count Neut % (Auto) Lymph % (Auto) [place] % (Auto) Eos % (Auto) Baso % (Auto) Neut # (Auto) Lymph # (Auto) [place] # (Auto) Eos # (Auto) Baso # (Auto) PT INR Sodium 139 Potassium 3.9 Chloride 102 Carbon Dioxide 28 BUN 9 Creatinine 0.70 Estimated GFR > 60.0 BUN/Creatinine Ratio 12.9 Glucose 113 H Calcium 8.2 L Magnesium Total Bilirubin 0.6 Conjugated Bilirubin Unconjugated Bilirubin AST 45 ALT 20 Alkaline Phosphatase 29 L Total Protein 6.8 Albumin 4.0 Globulin 2.8 Albumin/Globulin Ratio 1.4 Lipase U Opiates 300ng/mL cut Ur Oxycodone Screen Urine Methadone Screen Ur Barbiturates Screen U Tricyclic Antidepress Ur Phencyclidine Scrn Ur Amphetamines Screen U Methamphetamines Scrn Ur MDMA Scrn (Ecstasy) U Benzodiazepines Scrn Urine Cocaine Screen U Marijuana (THC) Screen Ethyl Alcohol < 10 Blood Type Antibody Screen Assessment & Plan Assessment & Plan narrative: Alcohol Withdrawal Delirium Tremens, acute, present on admission -improved, last C1-9 -DC schedule lorazepam, continue lorazepam as needed per protocol -continue MVI, thiamin and Heaton -initial screening labs are close to normal except for the very high alcohol level greater than 300. Weakness -PT eval -thiamine, B12 and multivitamin -walking okay with standby assistance Wernicke encephalopathy - His triad of Oculomotor Dysfunction, Encephalopathy and Ataxia are classic for Thiamine deficiency - 500 mg TID IV Thiamine for 2 days followed by 250 mg po daily x5 days which she can complete as outpatient Patient with improving course. Plan is to keep him to Friday to finish his 2 days of IV thiamine. He intends to reinitiate outpatient rehab in [place]. Quality VTE Deep Vein Thrombosis/Pulmonary Embolism Present on Admission: No
[2019-08-07] MEDS: SODIUM CHLORIDE 0.9% FLUSH 10 ML IV ×2 (16:00→21:22)
--- NOTE | 2019-08-07 16:37 | PC.NURSE ---
Assumed care of pt at 1500. Pt sitting up in bed. Father at bedside assisting with care. Father states he is aware of the visitor policy and his risks to Covid-19. States I stay at his side at all times CIWA 11, 2 mg ativan given Post ativan CIWA 2. Pt denies pain. Steady on feet. Ambulating SBA with staff or father. Calling appropriately for needs. Seizure precautions maintained.
[2019-08-08] VITALS (10 sets, daily range): BP systolic 127–147; BP diastolic 78–105; PULSE 58–85; RESP 14–18; TEMP 36.3–37.5; O2SAT 98–100
[2019-08-08] MEDS: LORazepam 1 MG TABLET PO ×5 (00:40→21:28)
--- NOTE | 2019-08-08 06:37 | PC.NURSE ---
Patient has been hypertensive. Patient has had CIWA of 8 and 9 on this shift. 1 mg of ativan PO given PRN. Patient has no complaints of nausea. Patient has had moderate-severe tremors and has been diaphoretic. Tele has been NS. Patient standby assist, father is rooming in.
[2019-08-08] MEDS: ENOXAPARIN 40 MG/0.4 ML SYRINGE SUBCUT (08:02)
[2019-08-08] MEDS: THIAMINE 500 MG in SODIUM CHLORIDE 0.9% 50 ML 220 ML IV ×2 (08:02→16:10)
[2019-08-08] MEDS: FOLIC ACID 1 MG TABLET PO (08:02)
[2019-08-08] MEDS: MULTIVITAMIN 1 TABLET 1 TAB PO (08:02)
[2019-08-08] MEDS: SODIUM CHLORIDE 0.9% FLUSH 10 ML IV ×2 (08:03→20:36)
--- NOTE | 2019-08-08 11:51 | CM.DPC ---
DCP Continued: EMR reviewed: MARTY/Rn spoke with patient about inpatient rehab vs outpatient rehab. Patient and patients father agreed that patient would benefit from inpatient rehab but doesn't want to go at D/C from hospital wants to go home and work some things out with his job and then call on his own and make plans to go to rehab. MARTY/RN called [facility] and had them process patients insurance to see what it would cost if patient decided to go their, they currently have beds. Faxed face sheet to them and spoke with patient and gave them there information to call them back. MARTY/Rn also gave patient [facility]- inpatient rehab information for them to review. Patient D/C plan in to go home with his father get his work and home stuff worked out and then self refer to inpatient rehab when he is ready. Qing Blanco RN
--- NOTE | 2019-08-08 16:05 | P.PN_ITS ---
Subjective Subjective Date Patient Seen: 08/08/19 Interval history: carroll is a 38-year-old male admitted with severe alcohol withdrawal and concern for Wernicke's encephalopathy. He reports improvement in anxiety and withdrawal symptoms. Last CIWA remains 9. He also has resolution of his double vision, head tremor, and inability to ambulate. Exam Vital Signs (past 8 hours): - 08/08/19 13:30 08/08/19 15:32 Temperature 99.5 F 98.4 F Pulse Rate 66 62 Respiratory Rate 16 18 Blood Pressure 135/105 H 130/94 H Pulse Oximetry 100 Oxygen Delivery Method Room Air Oxygen Flow Rate 0 Narrative Exam Narrative: General: Alert pleasant male in no acute distress Neurological: No gaze palsy or nystagmus, affect appropriate, recall good, no tremor, gait okay Objective Labs Result Diagrams: 08/07/19 05:58 08/07/19 05:58 Assessment & Plan Assessment & Plan narrative: Alcohol Withdrawal Delirium Tremens, acute, present on admission, resolving -improved, last CIWA 9, stable -continue lorazepam as needed per protocol -continue MVI, thiamin and [place] -initial screening labs are close to normal except for the very high alcohol level greater than 300. -patient requested and I agreed we could give him 10 tablets of lorazepam to have on hand after discharge to take as needed for withdrawal symptoms Weakness, resolved -PT eval -thiamine, B12 and multivitamin Wernicke encephalopathy - His triad of Oculomotor Dysfunction, Encephalopathy and Ataxia are classic for Thiamine deficiency - 500 mg TID IV Thiamine for 2 days followed by 250 mg po daily x5 days which he can complete as outpatient Patient with improving course. Plan is to keep him to Friday to finish his 2 days of IV thiamine. He is considering inpatient ETOH rehab versus re-initiate outpatient rehab in [place]. Quality VTE Deep Vein Thrombosis/Pulmonary Embolism Present on Admission: No
[2019-08-09] MEDS: LORazepam 1 MG TABLET PO (01:17)
[2019-08-09 01:20] VITALS: BP 135/95; PULSE 74; RESP 16; TEMP 36.8; O2SAT 98
[2019-08-09 02:00] VITALS: BP 147/97; PULSE 65; RESP 18
[2019-08-09 05:00] VITALS: BP 129/90; PULSE 66; RESP 16; TEMP 36.8; O2SAT 98
[2019-08-09 08:00] VITALS: BP 125/90; PULSE 63; RESP 18; TEMP 36.4; O2SAT 98
[2019-08-09] MEDS: MULTIVITAMIN 1 TABLET 1 TAB PO (08:59)
[2019-08-09] MEDS: ENOXAPARIN 40 MG/0.4 ML SYRINGE SUBCUT (08:59)
[2019-08-09] MEDS: THIAMINE 100 MG TABLET 250 MG PO (08:59)
[2019-08-09] MEDS: FOLIC ACID 1 MG TABLET PO (08:59)
--- NOTE | 2019-08-09 10:55 | P.DS_ITS ---
History of Present Illness History of Present Illness Date Patient Seen: 08/06/19 Chief complaint: ETOH withdrawls Narrative: Written by Dr. Tolliver: This is a 38-year-old male with a long history of alcohol dependency who presents with tremor, agitation and inability to tolerate withdrawal symptoms at home. 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 His biological father was a chronic alcoholic also. Two weeks ago he called his adopted father in [place] and asked him to come out to help him as he was developing a significant tremor and wanted to stop drinking. He abhishek arently lives alone in an apartment here in [facility]. He finally came in today because the head tremor was becoming quite severe and his father could not any longer lift him off the toilet. He has had no respiratory symptoms, fevers, chills, abdominal pain, vomiting, diarrhea, bleeding. His last alcohol was an unknown amount of beer yesterday and a few days before that some whiskey. On initial evaluation he appears to have quite a bit of tremor and so undergoes CT scan as a precaution, showing no evidence of an intracerebral bleed. He does not mention a documented chart episode 1 week ago in which he presented to his primary care physician with a description of a febrile/GI [place] cruise ship in the previous week. He did not mention any travel during my interview. He appears to quite clearly meet the classic triad of thiamine deficiency with ataxia, encephalopathy and ocular motor dysfunction. He is unable to demonstrate lateral gaze without prompting. Discharge Providers Provider Date of admission: 08/06/19 18:09 Discharge Date: 08/09/19 Consults: 08/06/19 18:14 Consult to Dietitian, Adult Routine Comment: Reason For Exam: Alcoholic malnourishment Consult to Discharge Planning Routine Comment: Discharge provider: Thelma Dacosta DO Summary Hospital Course Discharge Diagnosis: 1. Acute alcohol withdrawal with Delirium Tremens, in setting of alcohol dependence, present on admission. Resolving. 2. Generalized weakness, present on admission. Resolved. 3. Wernicke encephalopathy, present on admission. Resolved. Hospital Course: Jose Mujica is a 38-year-old male with a past medical history significant for alcohol dependence who presented to the ED with acute alcohol withdrawal and DTs. 1. Acute alcohol withdrawal with Delirium Tremens, in setting of alcohol dependence, present on admission. Resolving. -Patient presented with tremor, agitation and inability to tolerate withdrawal symptoms at home. -Continued CIWA protocol and lorazepam as needed per protocol. Patient had very low CIWA scores and no longer required lorazepam. -Continued multivitamin, folic acid 1 mg daily, and thiamin 500 mg IV 3 times daily x 2 days followed by 250 mg daily x 2 days then 100 mg daily thereafter. -Alcohol level 405. -Consulted [facility] for CD assessment and to provide resources for both inpatient and outpatient alcohol treatment. Patient plans to seek inpatient alcohol treatment by the end of the week. -Patient was discharged on slow Librium taper 75 mg twice daily followed by 50 mg twice daily followed by 25 mg twice daily then stop. 2. Generalized weakness, present on admission. Resolved. -Continued multivitamin, folic acid 1 mg daily, and thiamin 500 mg IV 3 times daily x 2 days followed by 250 mg daily x 2 days then 100 mg daily thereafter. -Continued physical therapy evaluation and treatment. Patient discharged home with no needs. 3. Wernicke encephalopathy, present on admission. Resolved. -Patient had classic triad of oculomotor dysfunction, encephalopathy and ataxia for thiamine deficiency. -Continued thiamin 500 mg IV 3 times daily x 2 days followed by 250 mg daily x 2 days then 100 mg daily thereafter. Exam Vital Signs (past 8 hours): - 08/09/19 05:00 08/09/19 08:00 Temperature 98.3 F 97.6 F Pulse Rate 66 63 Respiratory Rate 16 18 Blood Pressure 129/90 125/90 Pulse Oximetry 98 98 Oxygen Delivery Method Room Air Oxygen Flow Rate 0 Narrative Exam Narrative: General: Young male sitting in bed and in no acute distress, mildly tremulous, well-developed, well-nourished, anxious and irritable. HEENT: Normocephalic, atraumatic. External ears without defect. Pupils equal, round, and reactive to light. Anicteric sclerae, moist conjunctivae, and no lid lag. Oropharynx free of erythema and cobble stoning with moist mucosa. Neck: Supple with full range of motion. No lymphadenopathy or thyromegaly. Cardiovascular: Regular rate and rhythm without murmurs, rubs, or gallops appreciated Pulmonary: Clear to auscultation bilaterally without crackles, wheezes, or rhonchi. Normal respiratory effort with no use of accessory muscles. Abdomen: Soft, bowel sounds present, nontender, nondistended. No hepatosplenomegaly or masses appreciated. Extremities: No clubbing, cyanosis, or edema. Skin: Normal temperature, turgor, and texture; no rash, ulcers, or subcutaneous nodules appreciated. Neurological: Cranial nerves grossly intact. Psychiatric: Anxious and irritable mood and affect. Alert and oriented to pers on, place, and time. Objective Labs Result Diagrams: 08/07/19 05:58 08/07/19 05:58 Discharge Plan Discharge Plan Patient Disposition: Home Discharge comment: You are being discharged home. You were treated for alcohol withdrawal with delirium tremens and Wernicke encephalopathy due to thiamine deficiency. You have been prescribed a slow Librium taper over the next 3 days. Please do not take this medication other than prescribed and do not take with alcohol or while operating heavy machinery or a motor vehicle. Please abstain from alcohol indefinitely. Highly recommend that you undergo inpatient alcohol treatment. You have been provided resources for inpatient and outpatient alcohol treatment. Please establish care with a PCP in the community. You were provided a doctor's work excuse letter. Discharge orders & Medications Prescriptions: New multivitamin [Tab-A-Anjum] Tablet 1 tab PO DAILY Qty: 30 RF: 0 thiamine HCl (vitamin B1) [Vitamin B-1] 100 mg Tablet 100 mg PO DAILY Qty: 30 RF: 0 folic acid 1 mg Tablet 1 mg PO DAILY Qty: 30 RF: 0 chlordiazepoxide HCl 25 mg capsule See Rx Instructions .ROUTE .COMPLEX Qty: 9 RF: 0 Diet/Activity/Treatments Diet: Diet as Tolerated, Low-fat, Low-sodium and Low-cholesterol Activity: Activity as tolerated Visit Report/Discharge Packet Instructions: DI for Delirium Tremens, DI for Alcohol Abuse, DI for Drug or A lcohol Withdrawal, Wernicke Encephalopathy Discharges patient from system. Discharge Date/Time: 08/09/19 11:45 Quality VTE Deep Vein Thrombosis/Pulmonary Embolism Present on Admission: No
[2019-08-09] MEDS: chlordiazePOXIDE 25 MG CAPSULE 75 MG PO (11:14)
--- NOTE | 2019-08-09 11:46 | PC.NURSE ---
Discharge Pt denies pain. No PIV, removed at night. d/c instructions provided to pt and his father. Aware to make apt with PCP for f/u. pt plans to go to inpt rehab starting . Received 1st dose of librium here in hospital. Rx at d/c for librium and vitamins given to pt. Pt also received letter for work. Pt states he took all belongings with him. left in w/c with RN escort to car with his father.
== END 2019-08-09 11:45 | disposition home or self-care (01) | DRG 897 ==
LOC: ED 17:27 → AC 18:10
PROVIDERS: Admitting Provider Family Medicine; Emergency Provider Emergency Medicine; Referring Provider Emergency Medicine; Visit Provider Family Medicine
DX: F10.231 Alcohol dependence with withdrawal delirium (principal); E51.2 Wernicke's encephalopathy; Y90.8 Blood alcohol level of 240 mg/100 ml or more; Z87.891 Personal history of nicotine dependence; R53.1 Weakness; G25.2 Other specified forms of tremor
CPT/HCPCS: 36415; 70450; 80053; 80076; 80305; 80320; 81003; 83690; 83735; 85025; 85610; 86850; 86900; 86901; 93005; 96365; 96375; 99284; J1650; J2060; J2560; J3360